=== PATIENT | female | born 2000 | race Two or more races ===

== ENCOUNTER → 2024-07-06 | Outpatient (CLI) | payer MEDICARE, SELFPAY ==
[2024-07-06 09:20] LABS: HCG Qualitative,Urine Negative
--- NOTE | 2024-07-06 09:28 | XR_ITS ---
Examination: MRI of brain without intravenous contrast. MRI brain with intravenous contrast. Date and time of exam:July 06, 2024 1036 hours INDICATIONS: Elevated prolactin levels on laboratory examination May 2024 Technique: Multiple axial and sagittal images of the brain to been obtained. Siemens high-resolution 1.52 Lisa short bore scanner utilized. Sagittal sections, T1 weighted images, TR 500, TE 14, are performed. Axial sections proton-density and T2-weighted images have been obtained. Inversion recovery axial images, TR 9260, TE 111, TR 2500. Diffusion weighted images, axial sections, TR 4800, TE 128, B value 1000. Axial sections, ADC map, TR 4800, TE 128. Axial and coronal images were also obtained post 20 cc gadolinium administered intravenously. Findings:: Enlargement of the sella turcica is not present. The optic chiasm and infundibular stalk are not remarkable. There is no localized enlargement of the medulla or talia. Fourth ventricle and cerebellar tonsils appear normal in position. No subacute area of hemorrhage density is seen. Fourth ventricle is midline. Mass in the cerebellopontine angle region is not evident. 7th and 8th nerve complexes exhibit symmetry Globes are symmetrical Orbital musculature including medial lateral rectus muscles do not exhibit abnormality Increased white matter signal is not seen Effacement of the cortical sulcal markings is not identified. Mass effect upon the ventricular system is not identified. Diffusion-weighted images demonstrate no focus of restricted diffusion Contrast images demonstrate no abnormal enhancement Impression: Negative for acute hemorrhage mass effect or midline shift No acute infarct No MR findings diagnostic for demyelinating disease No pituitary micro or macroadenoma
== END | disposition home or self-care (01) ==
PROVIDERS: Referring Provider Specialist; Visit Provider Specialist
DX: E22.1 Hyperprolactinemia (principal); Z32.00 Encounter for pregnancy test, result unknown
CPT/HCPCS: 70553; 81025; A9579

== ENCOUNTER 2024-08-11 12:11 | Emergency (ER) | payer MEDICARE, SELFPAY ==
[2024-08-11 12:13] VITALS: BMI 37.8
[2024-08-11 13:16] VITALS: BP 133/88; PULSE 113; RESP 19; TEMP 36.7; O2SAT 98
--- NOTE | 2024-08-11 13:44 | PD.EDRME ---
Rapid Medical Screening Exam RME Arrival date/time: 08/11/24 12:11 24-year-old female history of psych disorder stopped taking her medications on August 08 bizarre this and behavioral changes Here with mother for evaluation. I have greeted and performed a focused initial assessment of this patient. Initial appropriate labs ordered at this time. A comprehensive ED assessment and evaluation of the patient and analysis of all test and completion of medical decision making process will be conducted by additional ED provider. Chief Complaint: Psychiatric Symptoms Time Seen by Provider: 08/11/24 12:46 Vital signs: Vital Signs Temperature 98.1 F 08/11/24 13:16 Pulse Rate 113 H 08/11/24 13:16 Respiratory Rate 19 08/11/24 13:16 Blood Pressure 133/88 H 08/11/24 13:16 Pulse Oximetry (%) 98 08/11/24 13:16 Oxygen Delivery Method Room Air 08/11/24 13:16
--- NOTE | 2024-08-11 13:50 | EDNOTE_ITS ---
ED Psych RME/HPI General Chief Complaint: Psychiatric Symptoms Stated Complaint: INCREASED PARANOID HX OF SCHIZOPHRENIA Time Seen by Provider: 08/11/24 12:46 Arrival date/time: 08/11/24 12:11 RME / HPI RME / HPI Narrative: 24-year-old female patient with significant history of schizophrenia, was brought in by her mom for increasing paranoia after patient stopped taking her olanzapine and Prozac for 1 week. However patient took her medication again at 11 AM. Patient was noted by her mom to be having hyperactivity, bizarre behavior, putting a lot of make-up, severity moderate. On my initial evaluation patient told me that she is now back to her baseline. Denies any homicidal or suicidal ideation. Related Data Home Medications ?Medication ?Instructions ?Recorded ?Confirmed olanzapine 20 mg tablet 25 mg PO QPM 09/15/21 12/01/22 fluoxetine 20 mg capsule (Prozac) 20 mg PO QDAY 08/21/22 12/01/22 Previous Rx's ?Medication ?Instructions ?Recorded docusate sodium 100 mg capsule 100 mg PO BID #40 caps 06/27/21 (Colace) Allergies Allergy/AdvReac Type Severity Reaction Status Date / Time No Known Allergies Allergy Verified 08/11/24 12:17 Review of Systems Review of Systems Narrative Review of Systems: Review of system reviewed and within normal limits except mentioned in HPI ED Exam Narrative Physical exam: VITAL SIGNS: Reviewed. GENERAL APPEARANCE: Alert and interactive, follows commands, no acute distress, HEAD AND FACE: Non-traumatic. ENT: PERRL, pink conjunctivitis, eyelid no trauma, Mucous membrane moist. NECK: Supple, nontender, no nuchal rigidity. CHEST: No tenderness, no crepitus, no paradoxical movement, no retractions. LUNGS: Clear, well ventilated, symmetric, no rales, no wheezing, no ronchi, no stridor, good breath sounds bilaterally. HEART: Regular rate, regular rhythm, no murmur, no gallops. ABDOMEN: Soft, positive bowel sounds, nondistended, no guarding, nontender, no rebound, no masses, RECTAL: Deferred. GENITAL: Deferred. NEUROLOGICAL: Gross motor function intact sensory function intact, Appropriate for age. MUSCULOSKELETAL: low back nontender, full range of motion. EXTREMITIES: Nontender, full range of motion. SKIN: Color pink, dry, no rash, no lacerations, no abrasions, no contusions. LYMPHATICS: Deferred. Course Quality Measures none Orders Category Date Time Status Psychosocial assessment NOW Care 08/11/24 13:44 Active Consult to Psychologist Routine Cons 08/11/24 13:44 Ordered Drug Screen,Urine Stat Lab 08/11/24 14:16 Completed HCG Qualitative,Urine Stat Lab 08/11/24 14:16 Completed RED [Alcohol, Blood Medical] Stat Lab 08/11/24 13:55 Completed Vital Signs Vital signs: Vital Signs Temperature 98.1 F 08/11/24 13:16 Pulse Rate 113 H 08/11/24 13:16 Respiratory Rate 19 08/11/24 13:16 Blood Pressure 133/88 H 08/11/24 13:16 Pulse Oximetry (%) 98 08/11/24 13:16 Oxygen Delivery Method Room Air 08/11/24 13:16 Psych MDM Narrative MDM Narrative:: 24-year-old female patient with significant history of schizophrenia, was brought in by her mom for increasing paranoia after patient stopped taking her olanzapine and Prozac for 1 week. However patient took her medication again at 11 AM. Patient was noted by her mom to be having hyperactivity, bizarre behavior, putting a lot of make-up, severity moderate. On my initial evaluation patient told me that she is now back to her baseline. Denies any homicidal or suicidal ideation. Patient is medically cleared for crisis evaluation Patient will be reevaluated by crisis in the morning. Care transferred to Dr. Montgomery at 11 PM for final disposition Patient data External records reviewed:: None Clinical information provided by:: patient and family Social determinants that could affect healthcare access:: none Patient has the following chronic illnesses:: Schizophrenia How is presenting disease/condition affected by chronic disease/condition?: exacerbated by Evaluation data The following diagnostics were reviewed and interpreted by me:: lab results Lab and/or radiology exams considered but not ordered:: None Interpretation Summary: Patient's workup all came back unremarkable. Medications / Prescriptions Medications or Prescriptions considered but not ordered:: None Medication administrations:: None Consultations Consultation(s) initiated? (list below): No Diagnosis Psych Differential Diagnosis: acute psychosis, chronic schizophrenia and bipolar disorder Most likely diagnosis given after review of the tests above:: Acute paranoia, chronic schizophrenia, poor medication compliance Admission Indicated Admission indicated?: not indicated Admission Request Was there a request for admission?: No Disposition Plan Disposition Plan: other (specify) Discharge Plan Prescriptions/Referrals Prescriptions/Med Rec: No Action docusate sodium [Colace] 100 mg capsule 100 mg PO BID Qty: 40 0RF olanzapine 20 mg Tablet 25 mg PO QPM fluoxetine [Prozac] 20 mg Capsule 20 mg PO QDAY Referrals: Sally Paulson PL[employer]ER [employer]ARER [Primary Care Provider] - In 1 week Problem List Clinical Impression: Acute psychosis, Chronic schizophrenia Patient/Caregiver Discharge Instructions Print Language: Citizen Of [place]
--- NOTE | 2024-08-11 14:08 | PC.CC ---
Addendum entered by Balaji Zuñiga II 08/11/24 16:55: ASW attempted to meet with pt at bedside to complete assessment to determine if pt meets criteria for 5150 hold. Pt noted to be asleep and time of encounter and not responding to name being called. Fast Track provider Jc expressed concerns on pts initial presentation, refusing to engage in med assessment. Pt distracted by her phone, provided short blunt responses. Noted that pt was applying makeup all over her face. Provider Jc, states that pts mom expressed concerns about pt being non-compliant with her medications and concerns about pts bizarre behaviors. Pt toxicology screening negative for all substances. Pts [place] Screening low risk with pt responding no to all questions. Ot note from historical, pt placed from ED on 03/23/2019 at [facility] by [facility]. Pt again evaluated 01/28/2021 for intentional OD with plan to end her life. Pt evaluated by [facility] and cleared with SP. Collateral Information: [id number] spoke with pts mother Georgie Pickard [phone]. Pts mom reporting, pt brought into ED for concerns of pt being non-compliant with her home medications for the last 2 weeks. Pts mom reporting that since 08/08/24 pt has been exhibiting more and more bizarre behaviors. Per mom pt will shower and not wash her hair. Pt will get dressed and not put on under garments. Per pts mom pt has completely trashed her closet. Pt demonstrating manic behaviors as noted that pt paces non-stop. Per mom pt has not endorsed any SI/HI-A/VH to her. Per pts mom, pt stopped her medications over concerns that she will gain weight. Per mom pt placed on medication 3 yrs ago, with some changes in dosages since. Per pts mom, when pt complies with her medication she is calm and often times very sleepy. Pt is prescribed Olanzapine. Per mom pt is connected with PAC, pt last had an appointment on 08/04/24, but missed to the appointment. Per mom pt stating she is fearful that they are going to hurt her, referring to her psychiatrist and clinic staff. Per mom pt was placed on a cancelation list for an immediate appointment. Per mom, PAC would have seen pt this AM at 0830, but states she could not wake pt up. Per pts mom she is the one who dispenses pts medications, but states when pt takes her medications she sleeps and misses doses. Per pts mom, she would like pt to return home and is willing to accept responsibility for caring for pt. Pts mom confirmed previous hospitalization. Pt is currently followed by Dr. Velázquez with PAC. Per pts mom, pt took her medication here in ED. Case staffed with REVENUE ACCOUNTANT Arpita Fletcher, pt will remain in ED overnight for eval in AM. At this time pt does not meet criteria for 5150 hold as pt is not a threat to herself or to others. ASW met with mom and provided update. Pts mom in agreement with plan and states understanding that pt is not on a hold at this time. ED provide Abrea and ED Charge Sydnie updated on plan for re-evaluation in AM. Original Note: Pt Rowena Pickard is a 24 yr old female to ED for increased paranoia. From report pt stopped her psychiatric medications on 08/08/24 and since has been exhibiting bizarre behaviors. At this time pt is pending medical clearance for crisis evaluation.
[2024-08-11 14:10] VITALS: BP 118/80; PULSE 98; RESP 18; TEMP 36.8; O2SAT 96
[2024-08-11 14:23] LABS: Alcohol, Blood Medical < 10.0 mg/dL (0-10.0)
[2024-08-11 14:32] LABS: HCG Qualitative,Urine Negative
[2024-08-11 14:39] LABS: Amphetamine/Methamp Scrn,U Negative (Negative); Barbiturate Screen,Urine Negative (Negative); Benzodiazepines Screen,Urine Negative (Negative); Benzoylecgonine Screen, Ur Negative (Negative); Fentanyl Screen,Urine Negative (Negative); Opiate Screen,Urine Negative (Negative); THC Screen,Urine Negative (Negative)
[2024-08-11 16:00] VITALS: BP 154/88; PULSE 98; RESP 17; TEMP 36.7; O2SAT 99
[2024-08-11 18:00] VITALS: BP 133/72; PULSE 108; RESP 19; TEMP 37.1; O2SAT 96
[2024-08-11 20:34] VITALS: BP 147/95; PULSE 94; RESP 18; TEMP 37.1; O2SAT 97
[2024-08-11 22:59] VITALS: BP 127/83; PULSE 89; RESP 16; TEMP 37.1; O2SAT 98
--- NOTE | 2024-08-12 00:13 | PD.EDADDENDU ---
Emergency Room Addendum Addendum Narrative: 2300: Care assumed from Yolanda Lyons NP. Past medical, surgical, social and family history reviewed. Vitals and home medications reviewed. Results and treatment plan discussed. I will assume the care of the patient at this time and will follow the patient, pending crisis re-evaluation. Please refer to the emergency department record for history and examination from initial visit. Patient was placed in observation for treatment and monitoring of psychiatric symptoms, at 2300 08/11/2024. Symptoms consist of suicidal ideation and depression. Treatment plan includes psychiatric consult, reassessments, and possible placement into psychiatric facility. The patient had access and provided personal hygiene, shower, food, water, and daily medications. 0455: Patient is alert, awake, and talking. Patient states she stopped taking her medications on and off again for the last few weeks due to them making her feel paranoid and causing her to gain weight. She denies any SI or HI. 0600: Care signed out to Dr. Clifford (emergency physician). Past medical, surgical, social and family history reviewed. Vitals and home medications reviewed. Results and treatment plan discussed. They will assume the care of the patient at this time and will follow the patient, pending labs and crisis re-evaluation. At this time, observation has ended.
[2024-08-12 02:42] VITALS: BP 137/78; PULSE 103; RESP 18; TEMP 36.7; O2SAT 97
--- NOTE | 2024-08-12 04:57 | PC.NURSE ---
PT ALERT AND AWAKE, TALKING COMPLETE SENTENCES AND STATING THAT SHE DOESNT REMEMBER ANYTHING FROM YESTERDAY. PT DENIES ANY SUICIDAL OR HOMICIDIAL IDEATIONS. PT STATES THAT SHE DOESNT WANT TO TAKE HER MEDICATION BECAUSE IT MAKES HER GAIN WEIGHT AND SLEEPY. STATES SHE ONLY TAKES HER MEDS INTERMITTENTLY. MOTHER AT BEDSIDE, SITTER REMOVED OFF PATIENT PATIENT IS VOLUNTARY AND LOW RISK. WAITING TO BE RE-EVALUATED BY CRISIS IN AM. WILL CONTINUE WITH PLAN OF CARE.
[2024-08-12 05:09] LABS: Basophils % (Auto) 0 % (0-2.5); Eosinophils % (Auto) 0 % (0-10); Hematocrit 39.8 % (36.0-46.0); Hemoglobin 13.6 g/dL (12.0-16.0); Immature Granulocytes % (Auto) 0 % (0-0); Immature Granulocytes Auto 0.02 Thou/mm3 (0.00-0.00); Lymphocytes # (Auto) 2.2 Thou/mm3 (1.0-4.8); Lymphocytes % (Auto) 22 % (10-50); Mean Corpuscular HGB Conc 34.2 g/dl (31.0-37.0); Mean Corpuscular Hemoglobin 29.2 pg (25.0-35.0); Mean Corpuscular Volume 85 fL (80-100); Monocytes # (Auto) 0.6 Thou/mm3 (0.0-0.8); Monocytes % (Auto) 6 % (0-12); Neutrophils # (Auto) 7.1 Thou/mm3 (1.8-7.7); Neutrophils % (Auto) 72 % (37-80); Nucleated Red Blood Cell % 0 /100 WBC (0); Platelet Count 285 Thou/mm3 (140-440); RDW Standard Deviation 42.6 fL (36.4-46.3); Red Blood Count 4.66 Miln/mm3 (4.00-5.20); White Blood Count 9.9 Thou/mm3 (3.6-11.0)
[2024-08-12 05:47] LABS: Alanine Aminotransferase 52 U/L (10-49); Albumin, Serum 4.9 gm/dL (3.5-5.0); Albumin/Globulin Ratio 1.8 (1.2-2.2); Alcohol, Blood Medical < 3.0 mg/dL (0-10.0); Alkaline Phosphatase 69 U/L (46-116); Anion Gap 10 (7-16); Aspartate Amino Transferase 31 U/L (0-34); BUN/Creatinine Ratio 13 Ratio (12-20); Bilirubin,Total 0.7 mg/dL (0.3-1.2); Blood Urea Nitrogen 8 mg/dL (9-23); Calcium 9.4 mg/dL (8.3-10.6); Calcium (Corrected) 9.4 mg/dL (8.5-10.1); Carbon Dioxide 23.1 mMol/L (20.0-31.0); Chloride 104 mMol/L (98-107); Creatinine (Component) 0.6 mg/dL (0.6-1.3); Estimated Creatinine Clearance 149.6 mL/min (>60); Free T4 (Free Thyroxine) 1.83 ng/dL (0.89-1.76); Globulin 2.7 gm/dL (2.3-3.5); Glucose 88 mg/dL (74-106); Magnesium 2.3 mg/dL (1.6-2.6); Osmolality,Calculated 271 (275-295); Potassium 2.8 mMol/L (3.4-5.1); Sodium 137 mMol/L (136-145); Thyroid Stimulating Hormone 1.48 uIU/mL (0.55-4.78); Total Protein 7.6 gm/dL (5.7-8.2); eGFR > 60 See Note
[2024-08-12 06:28] VITALS: BP 130/88; PULSE 103; RESP 18; TEMP 37.3; O2SAT 96
--- NOTE | 2024-08-12 07:31 | PD.EDADDENDU ---
Emergency Room Addendum Addendum Narrative: 0600 care assumed by previous shift provider. Past medical, surgical, social and family history reviewed. Vitals and home medications reviewed. Results and treatment plan discussed. I will assume the care of the patient at this time and will follow the patient, pending final disposition. Patient is cleared by crisis management and safety plan has been prepared. She had no acute issues and did not require any behavioral interventions during my encounter. Reviewed all results, analysis, treatment plan the patient was discharged in stable condition.
--- NOTE | 2024-08-12 08:32 | PC.CC ---
Pt Rowena Pickard, is a 24-year-old female brought in to ED by Mother voluntary. Rim Technician met with pt to complete Mental Heal Evaluation. Pt presents alert but disheveled. Pt easily engaged and was able to sit up on gurney and make direct eye contact as encounter progressed. Pt is noted to be alert and oriented to person, current place and year. Pt reports hx of mental health and reports being currently enrolled in Mental Health services through [facility], next appointment scheduled for 09/22/2024. Pt reports is compliant with therapeutic services but miss last appointment due to experiencing paranoid thoughts. Pt denies previous 5150 holds. Pt placed in ED 17. Pt reports living with Mother Georgie Pickard [phone], Father, and younger sister in [place] area, [address], [place] [facility] [address]. ED Seam Feller encountered Pt for mental health evaluation. ED Seam Feller used the following interventions: empathy, unconditional positive regard, Socratic dialogue including clarifying and probing questions. Pt was receptive and was able to disclosed frustration with weight gain and sleepiness with current psych medication. Pt reported Mother brought her into ER due to experiencing paranoid thoughts after deciding to stop psych medication on 08/08/2024. ED Seam Feller used C-SSRS to support process and assessed for SI/HI, self-harming behaviors, method, access to lethal means, plan/intent. Pt was responsive to mental health evaluation and denied plan/intent for SI/HI. Pt reported no hx of non-suicidal self-injury. Pt states she does not want to and has been able to discuss safety plan with Mother regarding having Pt begin daily routine of being more physically active and eating healthier. Mother agreed to supervise Pt follow safety plan and bring Pt back to ER if paranoid thoughts and behaviors begin again. ED Seam Feller consulted with egg processing supervisor Arpita Fletcher and it was agreed to safety plan with client due to client denying SI/HI with no plan/intent. Pt was engaged and assessed as reliable in participation in safety planning and was in agreement. Pt was able to review positive coping skills of playing with dog, going on walks, playing guitar. Mother agreed to lock away all sharps and medication and actively observe Pt for the follow 74 hours. Pt and Mother agreed to attend scheduled appointment with PAC on 09/22/2024 at 8:00am. ED Seam Feller will submit paperwork to PAC regarding Pt ER visit in order to ensure follow up.
[2024-08-12 10:36] VITALS: BP 126/87; PULSE 99; RESP 17; TEMP 36.9; O2SAT 95
== END 2024-08-12 10:42 | disposition home or self-care (01) ==
PROVIDERS: Emergency Medicine; Nurse Practitioner Primary Care; Emergency Provider Emergency Medicine; PCP Nurse Practitioner Family
DX: F20.9 Schizophrenia, unspecified (principal)
CPT/HCPCS: 36415; 80053; 80307; 80320; 81025; 83735; 84439; 84443; 85025; 90839; 96127; 99284; G0480

== ENCOUNTER 2024-10-25 18:36 | Emergency (ER) | payer MEDICAID, SELFPAY ==
[2024-10-25 18:59] VITALS: BP 147/93; PULSE 111; RESP 18; TEMP 36.8; O2SAT 97
--- NOTE | 2024-10-25 19:16 | EDRME_ITS ---
Rapid Medical Screening Exam [facility] Arrival date/time: 10/25/24 18:36 24F with history of schizophrenia (meds changed 1 month ago; but patient has been complaint up until a few days ago) presents to ED with mom for AMS and not taking showers/eating. Patient is usually on 20 mg Abilify once a day. Chief Complaint: Altered Mental Status Vital signs: Vital Signs Temperature 98.2 F 10/25/24 18:59 Pulse Rate 111 H 10/25/24 18:59 Respiratory Rate 18 10/25/24 18:59 Blood Pressure 147/93 H 10/25/24 18:59 Pulse Oximetry (%) 97 10/25/24 18:59 Oxygen Delivery Method Room Air 10/25/24 18:59
[2024-10-25 20:01] LABS: Lactate (Lactic Acid) 1.5 mMol/L (0.4-2.0)
[2024-10-25 20:05] LABS: Basophils % (Auto) 0 % (0-2.5); Eosinophils % (Auto) 0 % (0-10); Hematocrit 43.4 % (36.0-46.0); Hemoglobin 14.5 g/dL (12.0-16.0); Immature Granulocytes % (Auto) 0 % (0-0); Immature Granulocytes Auto 0.03 Thou/mm3 (0.00-0.00); Lymphocytes # (Auto) 2.6 Thou/mm3 (1.0-4.8); Lymphocytes % (Auto) 24 % (10-50); Mean Corpuscular HGB Conc 33.4 g/dl (31.0-37.0); Mean Corpuscular Hemoglobin 29.7 pg (25.0-35.0); Mean Corpuscular Volume 89 fL (80-100); Monocytes # (Auto) 0.9 Thou/mm3 (0.0-0.8); Monocytes % (Auto) 8 % (0-12); Neutrophils # (Auto) 7.5 Thou/mm3 (1.8-7.7); Neutrophils % (Auto) 67 % (37-80); Nucleated Red Blood Cell % 0 /100 WBC (0); Platelet Count 316 Thou/mm3 (140-440); RDW Standard Deviation 43.6 fL (36.4-46.3); Red Blood Count 4.89 Miln/mm3 (4.00-5.20); White Blood Count 11.1 Thou/mm3 (3.6-11.0)
[2024-10-25 20:30] LABS: Alanine Aminotransferase 45 U/L (10-49); Albumin, Serum 4.6 gm/dL (3.5-5.0); Albumin/Globulin Ratio 1.7 (1.2-2.2); Alkaline Phosphatase 53 U/L (46-116); Anion Gap 15 (7-16); Aspartate Amino Transferase 18 U/L (0-34); BUN/Creatinine Ratio 12 Ratio (12-20); Bilirubin,Total 0.8 mg/dL (0.3-1.2); Blood Urea Nitrogen 7 mg/dL (9-23); Calcium 9.5 mg/dL (8.3-10.6); Calcium (Corrected) 9.5 mg/dL (8.5-10.1); Carbon Dioxide 23.3 mMol/L (20.0-31.0); Chloride 105 mMol/L (98-107); Creatinine (Component) 0.6 mg/dL (0.6-1.3); Globulin 2.7 gm/dL (2.3-3.5); Glucose 112 mg/dL (74-106); Osmolality,Calculated 283 (275-295); Potassium 2.8 mMol/L (3.4-5.1); Sodium 143 mMol/L (136-145); Total Protein 7.3 gm/dL (5.7-8.2); eGFR > 60 See Note
[2024-10-25 20:58] VITALS: BP 153/84; PULSE 110; RESP 19; TEMP 37.1; O2SAT 96
[2024-10-26 02:46] VITALS: BP 138/83; PULSE 99; RESP 16; TEMP 37; O2SAT 98
[2024-10-26 06:12] VITALS: BP 168/103; PULSE 123; RESP 17; TEMP 37.8; O2SAT 98
--- NOTE | 2024-10-26 06:31 | PD.EDRME ---
Rapid Medical Screening Exam RME Arrival date/time: 10/25/24 18:36 10/25/24 18:36 24F with history of schizophrenia (meds changed 1 month ago; but patient has been complaint up until a few days ago) presents to ED with mom for AMS and not taking showers/eating. Patient is usually on 20 mg Abilify once a day. 313 at 0 637, patient was brought back from the waiting room at this time the patient is minimally responding to sternal rub stating that she cannot breathe although she has normal breath sounds. Mother states that the patient has not been taking her Abilify for her schizophrenia over a week. Vital signs were assessed and it was noted the patient is now developed a fever of 100.1 remains tachycardic with elevated blood pressure at this time sepsis was initiated. Chief Complaint: Altered Mental Status Time Seen by Provider: 10/25/24 22:32 Vital signs: Vital Signs Temperature 98.2 F 10/25/24 18:59 Pulse Rate 111 H 10/25/24 18:59 Respiratory Rate 18 10/25/24 18:59 Blood Pressure 147/93 H 10/25/24 18:59 Pulse Oximetry (%) 97 10/25/24 18:59 Oxygen Delivery Method Room Air 10/25/24 18:59 RME Narrative: 10/25/24 18:36 24F with history of schizophrenia (meds changed 1 month ago; but patient has been complaint up until a few days ago) presents to ED with mom for AMS and not taking showers/eating. Patient is usually on 20 mg Abilify once a day.
--- NOTE | 2024-10-26 06:36 | EKG_ITS ---
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
--- NOTE | 2024-10-26 06:37 | XR_ITS ---
Examination: AP chest single view. Technique: AP portable upright chest single view. Exam date and time: October 26, 2024, 0607 hrs. Indications: Sepsis today. Findings: Normal heart size. Lungs are clear. Osseous structures are intact. Impression: No active disease
[2024-10-26 07:08] LABS: Lactate (Lactic Acid) 1.3 mMol/L (0.4-2.0)
[2024-10-26 07:09] LABS: Basophils % (Auto) 0 % (0-2.5); Eosinophils % (Auto) 0 % (0-10); Hematocrit 45.9 % (36.0-46.0); Hemoglobin 15.4 g/dL (12.0-16.0); Immature Granulocytes % (Auto) 0 % (0-0); Immature Granulocytes Auto 0.02 Thou/mm3 (0.00-0.00); Lymphocytes # (Auto) 2.2 Thou/mm3 (1.0-4.8); Lymphocytes % (Auto) 25 % (10-50); Mean Corpuscular HGB Conc 33.6 g/dl (31.0-37.0); Mean Corpuscular Hemoglobin 29.6 pg (25.0-35.0); Mean Corpuscular Volume 88 fL (80-100); Monocytes # (Auto) 0.6 Thou/mm3 (0.0-0.8); Monocytes % (Auto) 7 % (0-12); Neutrophils # (Auto) 5.9 Thou/mm3 (1.8-7.7); Neutrophils % (Auto) 67 % (37-80); Nucleated Red Blood Cell % 0 /100 WBC (0); Platelet Count 316 Thou/mm3 (140-440); RDW Standard Deviation 43.8 fL (36.4-46.3); Red Blood Count 5.21 Miln/mm3 (4.00-5.20); White Blood Count 8.8 Thou/mm3 (3.6-11.0)
[2024-10-26 07:24] LABS: Partial Thromboplastin Time 23.1 Seconds (22.0-36.0); Prothrombin Time 11.4 Seconds (9.0-12.2)
[2024-10-26 07:27] LABS: Strep A Rapid Negative (Negative)
[2024-10-26 07:28] LABS: B-Type Natriuretic Peptide < 20 pg/mL (0-100)
[2024-10-26 07:38] LABS: Alanine Aminotransferase 50 U/L (10-49); Albumin/Globulin Ratio 1.8 (1.2-2.2); Alkaline Phosphatase 57 U/L (46-116); Anion Gap 13 (7-16); Aspartate Amino Transferase 26 U/L (0-34); BUN/Creatinine Ratio 12 Ratio (12-20); Blood Urea Nitrogen 7 mg/dL (9-23); Calcium 9.9 mg/dL (8.3-10.6); Calcium (Corrected) 9.9 mg/dL (8.5-10.1); Carbon Dioxide 23.9 mMol/L (20.0-31.0); Chloride 105 mMol/L (98-107); Creatinine (Component) 0.6 mg/dL (0.6-1.3); Globulin 2.8 gm/dL (2.3-3.5); Glucose 104 mg/dL (74-106); LDH (Lactate Dehydrogenase) 257 U/L (120-246); Lipase 24 U/L (12-53); Magnesium 2.2 mg/dL (1.6-2.6); Osmolality,Calculated 281 (275-295); Phosphorous 3.9 mg/dL (2.4-5.1); Procalcitonin 0.06 ng/ml (0.0-0.49); Sodium 142 mMol/L (136-145); Total Protein 7.8 gm/dL (5.7-8.2); Troponin I < 0.002 ng/mL (0.0-0.045); eGFR > 60 See Note
[2024-10-26 09:14] VITALS: TEMP 37.8
[2024-10-26] MEDS: ACETAMINOPHEN SUPP 650 MG SUPP PR (09:14)
[2024-10-26 09:17] VITALS: BP 150/94; PULSE 107; RESP 18; TEMP 37.3; O2SAT 99
--- NOTE | 2024-10-26 09:21 | PC.NURSE ---
Pt brought in by mother. Mother states pt acting up and not normal , rolling head around, not eating/not showering/not sleeping. Pt takes abilify 20 but seems to have not taken it for the last 10 days. Also prescribed olanzapine 5mg and Hydroxyzine 25mg but not taking recently. Prozac 10mg the last 2 days. Pt rolling head but not opening eyes or speaking when aroused. Pt slightly resistant when doing in and out catheter, but stopped resisting when told what was being done and why.
[2024-10-26 09:25] LABS: Collection Type, Urine Clean Catch
[2024-10-26 09:45] LABS: Bilirubin,Urine Negative (Negative); Blood,Urine 1+ (Negative); Clarity,Urine Clear (Clear/Hazy); Color,Urine Yellow (Lt Yel-Yel); Glucose, Urine Negative (Negative); Ketones,Urine 1+ (Negative); Leukocyte Esterase,Urine Negative (Negative); Nitrite,Urine Negative (Negative); PH,Urine 6.5 (5.0-7.0); Protein,Urine 1+ (Neg - Trace); RBC,Urine 13 /hpf (0-3); Specific Gravity,Urine 1.034 (1.001-1.035); Squamous Epithelial Cell,Urine 2 /hpf (0-5); Urobilinogen,Urine Negative mg/dL (0.0-1.0); WBC,Urine 4 /hpf (0-5)
--- NOTE | 2024-10-26 09:48 | PC.NURSE ---
Pt opened her eyes and looked at mom, does not verbally respond when asked questions although mom says that she can/does talk at home. I asked the patient several questions, with no response until I asked why don't you take you medications?... is it because you don't like the way they make you feel? and pt nodded her head yes. When pt's phone rang, she sprung up and pointed to it for me to hand it to her, but did not answer verbally.
--- NOTE | 2024-10-26 09:52 | PC.NURSE ---
Mother of pt has been informed by me that pt is currently NPO
[2024-10-26 10:14] VITALS: TEMP 37.1
--- NOTE | 2024-10-26 10:26 | PD.EDPSYCH ---
ED Psych RME/HPI General Chief Complaint: Altered Mental Status Stated Complaint: SCHIZOPHRENIC, HASN'T BEEN TAKING MED X 5 DAYS Time Seen by Provider: 10/25/24 22:32 Arrival date/time: 10/25/24 18:36 RME / HPI RME / HPI Narrative: 10/25/24 18:36 24F with history of schizophrenia (meds changed 1 month ago; but patient has been complaint up until a few days ago) presents to ED with mom for AMS and not taking showers/eating. Patient is usually on 20 mg Abilify once a day. DR. WALTON MAIN ED EVALUATION: 24 year old female with past medical history significant for schizophrenia presents to the Emergency Department with complaint of not feeling well . Per mother, she is not taking showers or eating well. Patient had her medications changed a month ago and now taking Abilify 20 mg daily, but the patient discontinued taking them because they made her feel sick . Patient denies any pain or specific symptoms at this time. Related Data Home Medications ?Medication ?Instructions ?Recorded ?Confirmed olanzapine 20 mg tablet 25 mg PO QPM 09/15/21 12/01/22 fluoxetine 20 mg capsule (Prozac) 20 mg PO QDAY 08/21/22 12/01/22 Previous Rx's ?Medication ?Instructions ?Recorded docusate sodium 100 mg capsule 100 mg PO BID #40 caps 06/27/21 (Colace) Allergies Allergy/AdvReac Type Severity Reaction Status Date / Time No Known Allergies Allergy Verified 10/26/24 06:34 Review of Systems Review of Systems Systems Reviewed: All systems reviewed, normal except as documented Narrative Review of Systems: GEN: No fever, no chills, no weight loss EYES: No discharge, no visual changes, no pain HEENT: No ear pain, no congestion, no sore throat PULM: No shortness of breath, no cough, no congestion CV: No chest pain, no dyspnea on exertion, no palpitations GI: No nausea, no vomiting, no diarrhea, no pain, no constipation : No frequency, no urgency and no dysuria MUSC/SKEL: No joint pain, no back pain SKIN: No rash PSYCH: No hallucinations, no depression HEME/LYMPH: No easy bleeding or bruising tendencies NEURO: No weakness, no headache Past Medical History Past Medical History RESPIRATORY: Positive Asthma (SEASONAL HAS INHALER) and Bronchitis GASTROINTESTINAL: Positive Gastrointestinal Disorders, Gastroesophageal Reflux Disease and Obesity PSYCHO/SOCIAL: Positive Depression, Anxiety and Behavior Problems (SUICIDE ATTEMPT-2019 NO PROBLEMS NOW) OTHER HISTORY: Positive Hospitalization ([facility] 2020) Family History FAMILY HISTORY: Positive Family Surgery (MOTHER) Surgical History SURGICAL: Positive Abdominal Surgery (ERCP X1) Social History SMOKING STATUS: Never smoker SUBSTANCE USE: does not use ALCOHOL: Never ED Exam Narrative Physical exam: GENERAL APPEARANCE: alert and oriented x 4, well-developed, well-nourished, no acute distress VITALS: All vitals were reviewed and the pulse ox is 95% on room air, which is normal according to my interpretation. HEENT: Normocephalic, atraumatic; pupils equal, round, reactive to light; EOMI; mucous membranes pink, moist; oropharynx clear NECK: Supple LUNGS: CTABL; no wheezes, no rales, no rhonchi HEART: Regular rate, regular rhythm; normal S1, S2; no murmurs ABDOMEN: non distended; normal BS; soft, no tenderness, no guarding, no rebound; no masses, no organomegaly, no hernia BACK: no CVA tenderness EXTREMITIES: atraumatic; no edema NEUROLOGIC: awake; alert and oriented x4; cranial nerves II-XII grossly intact; no focal sensory or motor deficits PSYCHIATRIC: appropriate mood and affect SKIN: warm, dry, normal color; no rashes Course Quality Measures none Orders Category Date Time Status Bedside COVID-19 Antigen Test NOW Care 10/26/24 06:35 Completed Bedside Influenza A&B Antigen Test NOW Care 10/26/24 06:36 Completed Data Base Administrator STAT Care 10/26/24 06:36 Completed Continuous Pulse Oximetry STAT Care 10/26/24 06:36 Completed EKG (ED ONLY) *Do not use* NOW Care 10/26/24 06:36 Completed In and Out Catheter X1PRN Care 10/26/24 06:36 Completed Insert IV NOW Care 10/26/24 06:36 Completed NPO STAT Care 10/26/24 06:36 Completed Strict Intake and Output Routine Care 10/26/24 06:36 Ordered EKG (ED Only) Stat Exams 10/26/24 06:36 Ordered XR chest 1V Stat Exams 10/26/24 06:37 Completed Alcohol, Blood Medical Stat Lab 10/26/24 06:50 Completed B-Type Natriuretic Peptide Stat Lab 10/26/24 06:50 Completed Blood Culture (Lab) Stat Lab 10/26/24 06:50 Received CBC Stat Lab 10/25/24 19:25 Completed CBC Stat Lab 10/26/24 06:50 Completed CMP [Comprehensive Metabolic Panel] Stat Lab 10/25/24 19:25 Completed Comprehensive Metabolic Panel Stat Lab 10/26/24 06:50 Completed LDH (Lactate Dehydrogenase) Stat Lab 10/26/24 06:50 Completed Lactate (Lactic Acid) Stat Lab 10/25/24 19:25 Completed Lactate (Lactic Acid) Stat Lab 10/26/24 06:50 Completed Lipase Stat Lab 10/26/24 06:50 Completed Magnesium Stat Lab 10/26/24 06:50 Completed Partial Thromboplastin Time Stat Lab 10/26/24 06:50 Completed Phosphorous Stat Lab 10/26/24 06:50 Completed Procalcitonin Stat Lab 10/26/24 06:50 Completed Prothrombin Time with INR Stat Lab 10/26/24 06:50 Completed Strep A Rapid Stat Lab 10/26/24 06:39 Completed Troponin I Stat Lab 10/26/24 06:50 Completed Urinalysis Stat Lab 10/26/24 09:21 Completed Urine Culture Stat Lab 10/26/24 09:21 Received Acetaminophen Supp [Tylenol Supp] Med 10/26/24 07:07 Discontinued 650 mg VA X1 ONE KCL 10% Liq UDC 15 ML Med 10/26/24 09:47 Discontinued 40 meq PO X1 ONE Oxygen Delivery NOW RT 10/26/24 06:36 Completed Vital Signs Vital signs: Vital Signs Temperature 98.2 F 10/25/24 18:59 Pulse Rate 111 H 10/25/24 18:59 Respiratory Rate 18 10/25/24 18:59 Blood Pressure 147/93 H 10/25/24 18:59 Pulse Oximetry (%) 97 10/25/24 18:59 Oxygen Delivery Method Room Air 10/25/24 18:59 Procedures -ED EKG Interpretation #1: Date of EK10/26/24 Time of EK:49 Rate: 111 Interpretation: Interpreted by me Additional EKG comment: sinus tachycardia, rate 111, partial right bundle branch block Psych MDM Narrative MDM Narrative:: I, Kay Mckee am scribing for and in the presence of Dr. Walton. Patient data External records reviewed:: [facility] previous records (Reviewed last ED visit dated 08/12/24, discharged with the following: Acute psychosis) Clinical information provided by:: patient and parent (mother) Social determinants that could affect healthcare access:: none Patient has the following chronic illnesses:: Schizophrenia; patient had her medications changed a month ago and now taking Abilify 20 mg daily, but the patient discontinued taking them because they made her feel sick . How is presenting disease/condition affected by chronic disease/condition?: caused by Evaluation data The following diagnostics were reviewed and interpreted by me:: lab results, radiology exam(s) and EKG tracing(s) (EKG#1: EKG at 0649 hours. Interpreted by me: sinus tachycardia, rate 111, partial right bundle branch block) Lab and/or radiology exams considered but not ordered:: none Interpretation Summary: Procedure(s): XR chest 1V Accession Number(s): [id number] cc: Casey Watson EMERGENCY MANAGEMENT PROGRAM SPECIALIST; Addison Cruz MD; Sally Paulson NP~ Examination: AP chest single view. Technique: AP portable upright chest single view. Exam date and time: October 26, 2024, 0607 hrs. Indications: Sepsis today. Findings: Normal heart size. Lungs are clear. Osseous structures are intact. Impression: No active disease Dictated By: Addison Cruz MD Medications / Prescriptions Medications or Prescriptions considered but not ordered:: none Medication administrations:: Medication Administration History Discontinued Medications Acetaminophen (Acetaminophen Supp 650 Mg Supp) 650 mg VA X1 ONE Stop: 10/26/24 07:08 Last Admin: 10/26/24 09:14 Dose: 650 mg Documented By: EDGAR Comments: Package would not scan Potassium Chloride (Potassium Chloride 10% 20 Meq/15 Ml Udc) 40 meq PO X1 ONE Stop: 10/26/24 09:48 Last Admin: 10/26/24 10:28 Dose: 40 meq Documented By: EDGAR see above Consultations Consultation(s) initiated? (list below): No Diagnosis Psych Differential Diagnosis: acute psychosis, chronic schizophrenia, depression and acute anxiety Most likely diagnosis given after review of the tests above:: Schizophrenia Admission Indicated Admission indicated?: not indicated Admission Request Was there a request for admission?: No Disposition Plan Disposition Plan: Discharge Discharge Attestation Discharge Attestation: The patient and all family members were given an opportunity to ask questions and understood the discharge instructions. Discharge instructions specifically effects, indications for sooner follow up or return to the emergency department, and the expected course of current diagnosis. Patient condition: Stable Discharge Plan Plan Patient Disposition: HOME (Self Care) Patient condition on transfer: Stable Prescriptions/Referrals Prescriptions/Med Rec: No Action docusate sodium [Colace] 100 mg capsule 100 mg PO BID Qty: 40 0RF olanzapine 20 mg Tablet 25 mg PO QPM fluoxetine [Prozac] 20 mg Capsule 20 mg PO QDAY Referrals: Sally Paulson NP [Primary Care Provider] - In 1 week Problem List Clinical Impression: Schizophrenia Patient/Caregiver Discharge Instructions Education Materials: ED Schizophrenia, General Print Language: Arabic Stand Alone Forms: Pam Award Info., Patient Portal Info Letter
[2024-10-26] MEDS: POTASSIUM CHLORIDE 10% 20 MEQ/15 ML UDC 40 MEQ PO (10:28)
[2024-10-26 10:45] LABS: Alcohol, Blood Medical < 3.0 mg/dL (0-10.0)
[2024-10-26 10:58] VITALS: BP 130/91; PULSE 96; RESP 27; TEMP 37.2; O2SAT 95
--- NOTE | 2024-10-26 11:07 | PC.CC ---
Patient is a 24 year-old female BIB-mother for Alter Mental Status. Charis CURTIS was consulted regarding mental health evaluation for patient as it was reported that patient stopped taking her medications for Schizophrenia. Charis CURTIS made [id number] contact with patient. ASW introduced self, role, and reason for visit.?Patient appeared alert and oriented to self, location, and situation.?At bedside was patient?s mother, Georgie Pickard who patient provided consent to remain in the room during assessment.? Patient was pleasant and engaged in initial assessment. Patient mood euthymic throughout assessment; her behavior appeared appropriate. Thought process was linear and organized. Patient reports she stopped taking her psychotropic medications Ambilify 20mg, Fluoxetine 10mg, Hydroxyzine 25mg, and Zyprexa 5mg approximately two weeks ago because she did not like how it made her feel. Patient was diagnosed with Schizophrenia 5 years ago. Patient is connected to outpatient mental health services at [facility] ([facility] Patient is followed by a Computer Project Manager and Psychiatrist, Dr. Goldberg. Patient denies suicidal and homicidal ideations, visual and auditory hallucinations. Patient reports she has suicide attempts in the past but does not recall the last time and has not thoughts currently or intentions. Patient stated, ?I just don?t like how the medication change made me feel.? ASW informed the patient that it is important to tell her psychiatrist at her next appointment of all side effects she has been having with the new medication. Charis CURTIS made contact with the [facility] to verify when patient?s next appointment is with the psychiatrist. Staff reported the next appointment is November 23, 2024. ASW requested an urgent appointment with the psychiatrist. Radha Hernadez, Staff reports she will request an urgent appointment with the doctor?s energy scheduler for tomorrow and patient would be called to be informed of appointment time for tomorrow. Patient and mother are willing to engage in safety plan. Upon clinical consultation with Arpita MARTINEZ patient does not meet criteria for 5150-hold. Safety plan with patient and mother will be established. Safety plan is for mother to provide extra supervision for the next 72 hours. Patient to have follow up appointment with the psychiatrist tomorrow and attend her appointment with Computer Project Manager October 31, 2024 at 12:30pm. Mother to keep all medications locked and sharps. Mother reports there are no firearms in the home. ASW provided community resource guide and Crisis Number. Charis CURTIS provided the above information for discharge plan to Dr. Walton, cephalometric analyst Kathy and bedside CAMPBELL Garcia.
== END 2024-10-26 11:16 | disposition home or self-care (01) ==
PROVIDERS: Physician Assistant; Registered Nurse General Practice; Emergency Provider Emergency Medicine; PCP Nurse Practitioner Family
DX: F20.9 Schizophrenia, unspecified (principal); R00.0 Tachycardia, unspecified
CPT/HCPCS: 36415; 71045; 80053; 80307; 80320; 81001; 83605; 83615; 83690; 83735; 83880; 84100; 84145; 84484; 85025; 85610; 85730; 87040; 87086; 87400; 87651; 87811; 90839; 93005; 99284; A9270; G0480

== ENCOUNTER 2024-10-27 22:50 | Emergency (ER) | payer MEDICAID, SELFPAY ==
[2024-10-27 22:57] VITALS: PULSE 78; O2SAT 98
[2024-10-27 23:02] VITALS: BP 143/91; PULSE 116; RESP 18; TEMP 37.1; O2SAT 96
--- NOTE | 2024-10-27 23:05 | PD.EDRME ---
Rapid Medical Screening Exam RME Arrival date/time: 10/27/24 22:50 Chief Complaint: Psychiatric Symptoms Time Seen by Provider: 10/27/24 23:04 Vital signs: Vital Signs Temperature 98.7 F 10/27/24 23:02 Pulse Rate 116 H 10/27/24 23:02 Respiratory Rate 18 10/27/24 23:02 Blood Pressure 143/91 H 10/27/24 23:02 Pulse Oximetry (%) 96 10/27/24 23:02 Oxygen Delivery Method Room Air 10/27/24 23:02 RME Narrative: 24yo female with a history of schizophrenia BIBA presents to the ED for multiple presentations of AMS. Per EMS, patient has been refusing to eat and talk. It is questionable if she has been compliant with her medications.
[2024-10-27 23:15] VITALS: BP 140/105; PULSE 110; RESP 27
[2024-10-27 23:30] LABS: Basophils % (Auto) 0 % (0-2.5); Eosinophils % (Auto) 0 % (0-10); Hematocrit 42.5 % (36.0-46.0); Hemoglobin 14.2 g/dL (12.0-16.0); Immature Granulocytes % (Auto) 0 % (0-0); Immature Granulocytes Auto 0.02 Thou/mm3 (0.00-0.00); Lymphocytes # (Auto) 2.2 Thou/mm3 (1.0-4.8); Lymphocytes % (Auto) 30 % (10-50); Mean Corpuscular HGB Conc 33.4 g/dl (31.0-37.0); Mean Corpuscular Hemoglobin 29.3 pg (25.0-35.0); Mean Corpuscular Volume 88 fL (80-100); Monocytes # (Auto) 0.6 Thou/mm3 (0.0-0.8); Monocytes % (Auto) 8 % (0-12); Neutrophils # (Auto) 4.7 Thou/mm3 (1.8-7.7); Neutrophils % (Auto) 62 % (37-80); Nucleated Red Blood Cell % 0 /100 WBC (0); Platelet Count 255 Thou/mm3 (140-440); RDW Standard Deviation 43.8 fL (36.4-46.3); Red Blood Count 4.84 Miln/mm3 (4.00-5.20); White Blood Count 7.6 Thou/mm3 (3.6-11.0)
[2024-10-27 23:53] VITALS: BMI 36.2
[2024-10-27 23:56] VITALS: PULSE 78; RESP 18; O2SAT 92
[2024-10-27 23:56] LABS: Alanine Aminotransferase 47 U/L (10-49); Albumin, Serum 4.5 gm/dL (3.5-5.0); Albumin/Globulin Ratio 1.8 (1.2-2.2); Alkaline Phosphatase 50 U/L (46-116); Anion Gap 13 (7-16); Aspartate Amino Transferase 27 U/L (0-34); BUN/Creatinine Ratio 10 Ratio (12-20); Bilirubin,Total 1.1 mg/dL (0.3-1.2); Blood Urea Nitrogen 7 mg/dL (9-23); Calcium 9.1 mg/dL (8.3-10.6); Calcium (Corrected) 9.1 mg/dL (8.5-10.1); Carbon Dioxide 25.4 mMol/L (20.0-31.0); Chloride 105 mMol/L (98-107); Creatinine (Component) 0.7 mg/dL (0.6-1.3); Estimated Creatinine Clearance 130.2 mL/min (>60); Globulin 2.5 gm/dL (2.3-3.5); Glucose 98 mg/dL (74-106); Osmolality,Calculated 282 (275-295); Sodium 143 mMol/L (136-145); eGFR > 60 See Note
[2024-10-28] VITALS: BP 158/105; PULSE 120; RESP 28; O2SAT 99
[2024-10-28] MEDS: DiphenhydrAMINE INJ 50 MG/ML VIAL IV (00:05)
[2024-10-28] MEDS: SODIUM CHLORIDE 0.9% 1000 ML 1,000 ML 999 ML IV (00:07)
[2024-10-28 00:24] LABS: HCG,Qualitative Serum Negative
--- NOTE | 2024-10-28 00:25 | PD.EDPSYCH ---
ED Psych RME/HPI General Chief Complaint: Psychiatric Symptoms Stated Complaint: CATATONIC STATE, MENTAL EVAL Time Seen by Provider: 10/27/24 23:04 Arrival date/time: 10/27/24 22:50 Limitations: no limitations RME / HPI RME / HPI Narrative: 24yo female with a history of schizophrenia BIBRochelle presents to the ED for multiple presentations of AMS. Per EMS, patient has been refusing to eat and talk. It is questionable if she has been compliant with her medications. Dr. Tello's Main ED Evaluation: 24yo female with a history of schizophrenia BIBA from home presents to the ED for a chief complaint of AMS. Mom states the patient has been refusing to get up, shower, eat, or talk. She states the patient has not been taking her medications, including olanzapine, for the last 2 weeks due to experiencing side effects. Mom states the patient was started on rispiradone today, but has not taken it yet due to being concerned about a dystonic reaction occurring. Mom states the patient has a follow-up appointment with psychiatry on Wednesday. Related Data Home Medications ?Medication ?Instructions ?Recorded ?Confirmed olanzapine 20 mg tablet 25 mg PO QPM 09/15/21 12/01/22 fluoxetine 20 mg capsule (Prozac) 20 mg PO QDAY 08/21/22 12/01/22 Previous Rx's ?Medication ?Instructions ?Recorded docusate sodium 100 mg capsule 100 mg PO BID #40 caps 06/27/21 (Colace) Allergies Allergy/AdvReac Type Severity Reaction Status Date / Time No Known Allergies Allergy Verified 10/26/24 06:34 Review of Systems Review of Systems Systems Reviewed: All systems reviewed, normal except as documented ED Exam General Limitations: Present no limitations General appearance: Present alert, in no apparent distress and other (sitting up, playing on her phone; does not have any contractions of her extremities, face or neck; does look at me) Head Head exam: Present atraumatic Eye Eye exam: Present normal appearance, PERRL and EOMI ENT ENT exam: Present normal exam, normal oropharynx and mucous membranes moist Neck Neck exam: Present normal inspection, full ROM and trachea midline Chest Chest inspection: Present normal inspection and symmetric chest wall rise Respiratory Respiratory exam: Present normal lung sounds bilaterally Cardiovascular Cardiovascular exam: Present normal rhythm, tachycardia and normal heart sounds Abdominal Exam Abdominal exam: Present soft and normal bowel sounds Extremities Exam Extremities exam: Present normal inspection and full ROM Back Exam Back exam: Present normal inspection and full ROM Neurological Exam Neurological exam: Present alert and CN II-XII intact Psychiatric Psychiatric exam: Present normal affect and normal mood Skin Skin exam: Present warm, dry, intact and normal color Course Quality Measures none Orders Category Date Time Status IV [Insert IV] STAT Care 10/27/24 23:08 Completed CBC Stat Lab 10/27/24 23:16 Completed CMP [Comprehensive Metabolic Panel] Stat Lab 10/27/24 23:16 Completed HCG,Qualitative Serum Stat Lab 10/27/24 23:16 Completed DiphenhydrAMINE INJ [Benadryl Inj] Med 10/27/24 23:33 Discontinued 50 mg IV X1 ONE POTASSIUM CHL 10 mEq IVPB [Kcl Ivpb] Med 10/28/24 00:40 Discontinued 10 meq in 100 ml IV X1 Sodium Chloride 0.9% 1000 ml [Ns] 1,000 ml Med 10/27/24 23:07 Discontinued IV 999 mls/hr Vital Signs Vital signs: Vital Signs Temperature 98.7 F 10/27/24 23:02 Pulse Rate 116 H 10/27/24 23:02 Respiratory Rate 18 10/27/24 23:02 Blood Pressure 143/91 H 10/27/24 23:02 Pulse Oximetry (%) 96 10/27/24 23:02 Oxygen Delivery Method Room Air 10/27/24 23:02 Psych MDM Narrative MDM Narrative:: It is likely best that the patient does not start another antipsychotic and that the patient follows up with psychiatry on Wednesday as scheduled. I informed the patient's mom that the patient's potassium is low at 3.0. Mom requests the patient to receive Potassium IV. Patient data External records reviewed:: [facility] previous records (Per chart review, patient was seen here yesterday for the same complaint.) Clinical information provided by:: parent Social determinants that could affect healthcare access:: mental health Patient has the following chronic illnesses:: schizophrenia How is presenting disease/condition affected by chronic disease/condition?: caused by Evaluation data The following diagnostics were reviewed and interpreted by me:: lab results Lab and/or radiology exams considered but not ordered:: none Interpretation Summary: CBC is normal, Potassium is low at 3.0, HCG is negative, according to my interpretation. Medications / Prescriptions Medications or Prescriptions considered but not ordered:: none Medication administrations:: Medication Administration History Discontinued Medications Diphenhydramine HCl (Diphenhydramine Inj 50 Mg/Ml Vial) 50 mg IV X1 ONE Stop: 10/27/24 23:34 Last Admin: 10/28/24 00:05 Dose: 50 mg Documented By: MACEY Sodium Chloride (Ns) 1,000 mls @ 999 mls/hr IV .Q1H1M ONE Stop: 10/28/24 00:07 Last Infusion: 10/28/24 01:30 Dose: Infused Documented By: Admin: 10/28/24 00:07 Dose: 999 mls/hr Documented By: MACEY Potassium Chloride (Kcl Ivpb) 10 meq in 100 mls @ 100 mls/hr IV X1 ONE Stop: 10/28/24 01:39 Last Infusion: 10/28/24 03:50 Dose: Infused Documented By: Admin: 10/28/24 02:27 Dose: 100 mls/hr Documented By: MACEY see above Consultations Consultation(s) initiated? (list below): No Diagnosis Psych Differential Diagnosis: other (dystonic reaction, dehydration, electrolyte abnormality, drug use) Most likely diagnosis given after review of the tests above:: see clinical impression below Admission Indicated Admission indicated?: not indicated Admission Request Was there a request for admission?: No Disposition Plan Disposition Plan: Discharge Discharge Attestation Discharge Attestation: The patient and all family members were given an opportunity to ask questions and understood the discharge instructions. Discharge instructions specifically effects, indications for sooner follow up or return to the emergency department, and the expected course of current diagnosis. Patient condition: Stable Discharge Plan Plan Patient Disposition: HOME (Self Care) Patient condition on transfer: Stable Prescriptions/Referrals Prescriptions/Med Rec: No Action docusate sodium [Colace] 100 mg capsule 100 mg PO BID Qty: 40 0RF olanzapine 20 mg Tablet 25 mg PO QPM fluoxetine [Prozac] 20 mg Capsule 20 mg PO QDAY Referrals: Sally Paulson NP [Primary Care Provider] - 10/30/24 Problem List Clinical Impression: Dystonic drug reaction, Acute hypokalemia Patient/Caregiver Discharge Instructions Education Materials: ED Medicine Reaction, Dystonic Additional Instructions: Please call your psychiatrist tomorrow to see if your daughter needs to start the risperidone, since you are having reservations about starting this drug secondary to her side effects to antipsychotics. You can take [id number] Benadryl 25 mg twice a day if needed for the next 2 days for similar symptoms from today. Return to emergency department worsening symptoms, or any other concerns. Your potassium was slightly decreased today. You may have to eat a banana once a week to keep your potassium normal. Follow-up with your primary care in the next 3 to 5 days to see if they would like to repeat your lab values. Print Language: Australian Stand Alone Forms: Pam Award Info., Patient Portal Info Letter
[2024-10-28 01:00] VITALS: BP 148/103; PULSE 109; RESP 29; O2SAT 99
[2024-10-28 02:00] VITALS: BP 144/104; PULSE 101; RESP 26; O2SAT 98
[2024-10-28] MEDS: POTASSIUM CHL 10 mEq IVPB 10 MEQ/100 ML BAG 100 MEQ IV (02:27)
--- NOTE | 2024-10-28 02:29 | PC.NURSE ---
about 15 min after receiving benadryl, her sx were gone. pt sitting in rm playing on celll phone. appears in no distress. Pts mother is at bedside.
[2024-10-28 03:00] VITALS: BP 138/97; PULSE 101; RESP 26; O2SAT 98
[2024-10-28 04:00] VITALS: BP 110/89; PULSE 100; RESP 29; O2SAT 98
[2024-10-28 04:22] VITALS: TEMP 36.8
== END 2024-10-28 04:24 | disposition home or self-care (01) ==
PROVIDERS: Emergency Provider Emergency Medicine; PCP Nurse Practitioner Family
DX: G24.09 Other drug induced dystonia (principal); E87.6 Hypokalemia; T43.595A Adverse effect of other antipsychotics and neuroleptics, initial encounter
CPT/HCPCS: 36415; 80053; 80307; 81001; 84703; 85025; 96361; 96365; 99284; J1200; J3480; J7030

== ENCOUNTER 2024-10-30 15:55 | Emergency (ER) | payer MEDICAID, SELFPAY ==
[2024-10-30 16:01] VITALS: BP 125/89; PULSE 117; RESP 18; TEMP 36.8; O2SAT 100
--- NOTE | 2024-10-30 16:23 | PD.EDRME ---
Rapid Medical Screening Exam RME Arrival date/time: 10/30/24 15:55 Time Seen by Provider: 10/30/24 16:21 Vital signs: Vital Signs Temperature 98.2 F 10/30/24 16:01 Pulse Rate 117 H 10/30/24 16:01 Respiratory Rate 18 10/30/24 16:01 Blood Pressure 125/89 H 10/30/24 16:01 Pulse Oximetry (%) 100 10/30/24 16:01 Oxygen Delivery Method Nasal Cannula 10/30/24 16:01 Oxygen Flow Rate 4 10/30/24 16:01 Vital signs reviewed by provider: Yes RME Narrative: 24-year-old female with history of schizophrenia and periods of catatonia coming into the emergency department by EMS with possible recurrent reaction to her Risperidone which she started 3 days ago. Patient was seen in the last 3 to 4 days for similar response treated with Benadryl. I have greeted and performed a focused initial assessment of this patient. A comprehensive ED assessment and evaluation of the patient, analysis of all test results, and completion of the medical decision making process will be conducted by additional ED providers.
[2024-10-30 16:42] VITALS: PULSE 91; RESP 16; O2SAT 99
[2024-10-30 16:47] VITALS: BMI 28.3
[2024-10-30] MEDS: DiphenhydrAMINE INJ 50 MG/ML VIAL 25 MG IVP (17:14)
--- NOTE | 2024-10-30 17:25 | PD.EDSYNC ---
ED Syncope RME/HPI General Chief Complaint: Syncope / Near Syncope Stated Complaint: SYNCOPE Time Seen by Provider: 10/30/24 16:21 Arrival date/time: 10/30/24 15:55 24 year old female with past medical history of schizophrenia and periods of catatonia present to emergency room by EMS with possible recurrent reaction of risperidone which she started 3 days ago. Pt seen at [facility] multi times, pt had an appointment with her psychiarist today. Pt placed on aripiprazole 20mg and olanzapine 5mg in the past with increase side effects which cause pcp to change to risperidone. SEVERITY: Symptoms are described as being severe with limitations on activities of daily living CONTEXT: The patient is unable to identify any inciting events. DURATION/TIMING: The symptoms started approximately intermittent 3 days ASSOCIATED SYMPTOMS: The patient is unable to identify any other associated symptoms. MODIFYING FACTORS: The patient is unable to identify any alleviating or aggravating symptoms. PERTINENT ROS: no fevers, no cough, no pleuritic pain, no ripping or tearing sensations, denies any lower extremity edema and no unilateral swelling, no chest pain/shortness of breath no nausea,vomiting, diarrhea, no dizziness/headache no rash no loc/syncope episode Dr. Goldberg REVIEW OF SYSTEMS: See History of Present Illness - with the exception of those mentioned in the history of present illness, all other systems reviewed and reported as negative GENERAL: In general the patient is awake, interactive, in an emergency department gurney. HEAD/EYES/EARS/NOSE/THROAT: normo-cephalic, atraumatic, mucus membranes are moist, anicteric, palpebral conjunctiva is pink, trachea is midline. CARDIOVASCULAR: regular rate and regular rhythm, no murmurs, heart sounds are not distant, strong pulses in all four extremities that are equal and symmetric bilateral upper and lower extremities, normal capillary refill. CHEST/PULMONARY: normal chest rise and fall, good air movement, clear to auscultation bilaterally, normal inspiratory to expiratory ratios without evidence of respiratory distress. NECK: No midline/Paraspinal tenderness, no step off ROM/Strenght intact No Kernig and bruzinski sign. No trauma ABDOMEN: soft, not tender, no masses appreciated BACK: normal range of motion without pain. NEUROLOGICAL: cranio-facial features are symmetric, moves all four extremities equally without obvious limitations or weakness. EXTREMITY: no tenderness to palpation over the long bones or large joints of the bilateral upper and lower extremities, no joint swelling, no joint erythema, no signs of trauma, no unilateral leg swelling and no peripheral edema. SKIN: warm, dry, well-perfused, no jaundice, no rash, no telangiectasias or petechia. PSYCH: move with touch but not speaking RME / HPI RME / HPI narrative: 24-year-old female with history of schizophrenia and periods of catatonia coming into the emergency department by EMS with possible recurrent reaction to her Risperidone which she started 3 days ago. Patient was seen in the last 3 to 4 days for similar response treated with Benadryl. I have greeted and performed a focused initial assessment of this patient. A comprehensive ED assessment and evaluation of the patient, analysis of all test results, and completion of the medical decision making process will be conducted by additional ED providers. Related Data Home Medications ?Medication ?Instructions ?Recorded ?Confirmed olanzapine 20 mg tablet 25 mg PO QPM 09/15/21 12/01/22 fluoxetine 20 mg capsule (Prozac) 20 mg PO QDAY 08/21/22 12/01/22 Previous Rx's ?Medication ?Instructions ?Recorded docusate sodium 100 mg capsule 100 mg PO BID #40 caps 06/27/21 (Colace) lorazepam 0.5 mg tablet (Ativan) 0.5 mg PO BID PRN anxiety #14 tabs 10/30/24 Allergies Allergy/AdvReac Type Severity Reaction Status Date / Time No Known Allergies Allergy Verified 10/26/24 06:34 Course Course Course Narrative: basic labs, and benadryl 25mg Quality Measures none Orders Category Date Time Status CBC Stat Lab 10/30/24 17:24 Completed CMP [Comprehensive Metabolic Panel] Stat Lab 10/30/24 17:24 Completed Drug Screen,Urine Stat Lab 10/30/24 16:53 Ordered HCG Qualitative,Urine Stat Lab 10/30/24 16:53 Ordered DiphenhydrAMINE INJ [Benadryl Inj] Med 10/30/24 16:52 Discontinued 25 mg IVP X1 ONE LORazepam [Ativan] Med 10/30/24 19:17 Discontinued 0.5 mg PO X1 ONE Sodium Chloride 0.9% 1000 ml [Ns] 1,000 ml Med 10/30/24 17:28 Discontinued IV 999 mls/hr Reevaluation(s) Reevaluation #1: attempt to call Dr. Goldberg no answer and uable to reach. most likely will keep/observe overnight. Reevaluation #2: mother is comfortable to start on ativan medication, has appointment with psych on wednesday. did not make to appointment on wednesday. will try to call pcp/psych tomorrow to adjust med's. pt is awake currently. Vital Signs Vital signs: Vital Signs Temperature 98.2 F 10/30/24 16:01 Pulse Rate 117 H 10/30/24 16:01 Respiratory Rate 18 10/30/24 16:01 Blood Pressure 125/89 H 10/30/24 16:01 Pulse Oximetry (%) 100 10/30/24 16:01 Oxygen Delivery Method Nasal Cannula 10/30/24 16:01 Oxygen Flow Rate 4 10/30/24 16:01 Syncope Patient data External records reviewed:: [facility] previous records Clinical information provided by:: parent Social determinants that could affect healthcare access:: mental health Patient has the following chronic illnesses:: as stated in chart How is presenting disease/condition affected by chronic disease/condition?: exacerbated by Evaluation data The following diagnostics were reviewed and interpreted by me:: lab results Lab and/or radiology exams considered but not ordered:: n/a Interpretation Summary: cbcwnl cmp wnl Medications / Prescriptions Medications or Prescriptions considered but not ordered:: n/a Medication administrations:: Medication Administration History Discontinued Medications Diphenhydramine HCl (Diphenhydramine Inj 50 Mg/Ml Vial) 25 mg IVP X1 ONE Stop: 10/30/24 16:53 Last Admin: 10/30/24 17:14 Dose: 25 mg Documented By: LILLIANA Sodium Chloride (Ns) 1,000 mls @ 999 mls/hr IV .Q1H1M ONE Stop: 10/30/24 18:28 Last Infusion: 10/30/24 19:03 Dose: Infused Documented By: Admin: 10/30/24 18:02 Dose: 999 mls/hr Documented By: LILLIANA Lorazepam (Lorazepam 0.5 Mg Tablet) 0.5 mg PO X1 ONE Stop: 10/30/24 19:18 Last Admin: 10/30/24 19:33 Dose: 0.5 mg Documented By: JENARO as stated above Consultations Consultation(s) initiated? (list below): No Diagnosis Syncope Differential Diagnosis: other (Psych Differential Diagnosis: other (dystonic reaction, dehydration, electrolyte abnormality, drug use)) Most likely diagnosis given after review of the tests above:: dystonic reaction Admission Indicated Admission indicated?: not indicated Admission Request Was there a request for admission?: No Disposition Plan Disposition Plan: Discharge Discharge Attestation Discharge Attestation: The patient and all family members were given an opportunity to ask questions and understood the discharge instructions. Discharge instructions specifically effects, indications for sooner follow up or return to the emergency department, and the expected course of current diagnosis. Patient condition: Stable Discharge Plan Plan Patient Disposition: HOME (Self Care) Health Concerns: Follow up with Dr. Goldberg as directed Return to Ed if symptoms worsen Prescriptions/Referrals Prescriptions/Med Rec: New lorazepam [Ativan] 0.5 mg tablet 0.5 mg PO BID PRN (Reason: anxiety) Qty: 14 0RF No Action docusate sodium [Colace] 100 mg capsule 100 mg PO BID Qty: 40 0RF olanzapine 20 mg Tablet 25 mg PO QPM fluoxetine [Prozac] 20 mg Capsule 20 mg PO QDAY Referrals: Sally Paulson INSEMINATION WORKER [Primary Care Provider] - In 1 week Problem List Clinical Impression: Dystonic drug reaction, Anxiety Patient/Caregiver Discharge Instructions Education Materials: ED Anxiety Reaction, ED Medicine Reaction, Dystonic Print Language: Serbian Stand Alone Forms: Pam Award Info., Patient Portal Info Letter
[2024-10-30 17:33] LABS: Basophils % (Auto) 0 % (0-2.5); Eosinophils % (Auto) 0 % (0-10); Hematocrit 45.3 % (36.0-46.0); Hemoglobin 15.6 g/dL (12.0-16.0); Immature Granulocytes % (Auto) 0 % (0-0); Immature Granulocytes Auto 0.02 Thou/mm3 (0.00-0.00); Lymphocytes # (Auto) 2.7 Thou/mm3 (1.0-4.8); Lymphocytes % (Auto) 30 % (10-50); Mean Corpuscular HGB Conc 34.4 g/dl (31.0-37.0); Mean Corpuscular Hemoglobin 29.7 pg (25.0-35.0); Mean Corpuscular Volume 86 fL (80-100); Monocytes # (Auto) 0.7 Thou/mm3 (0.0-0.8); Monocytes % (Auto) 8 % (0-12); Neutrophils # (Auto) 5.7 Thou/mm3 (1.8-7.7); Neutrophils % (Auto) 62 % (37-80); Nucleated Red Blood Cell % 0 /100 WBC (0); Platelet Count 277 Thou/mm3 (140-440); RDW Standard Deviation 41.5 fL (36.4-46.3); Red Blood Count 5.25 Miln/mm3 (4.00-5.20); White Blood Count 9.1 Thou/mm3 (3.6-11.0)
[2024-10-30 17:51] VITALS: BP 147/110; PULSE 113; RESP 20; TEMP 36.7; O2SAT 98
[2024-10-30 17:52] LABS: Alanine Aminotransferase 49 U/L (10-49); Albumin, Serum 4.5 gm/dL (3.5-5.0); Albumin/Globulin Ratio 1.7 (1.2-2.2); Alkaline Phosphatase 51 U/L (46-116); Anion Gap 12 (7-16); Aspartate Amino Transferase 31 U/L (0-34); BUN/Creatinine Ratio 6 Ratio (12-20); Bilirubin,Total 0.6 mg/dL (0.3-1.2); Blood Urea Nitrogen < 5 mg/dL (9-23); Calcium 9.7 mg/dL (8.3-10.6); Calcium (Corrected) 9.7 mg/dL (8.5-10.1); Carbon Dioxide 25.9 mMol/L (20.0-31.0); Chloride 102 mMol/L (98-107); Creatinine (Component) 0.8 mg/dL (0.6-1.3); Estimated Creatinine Clearance 112.3 mL/min (>60); Globulin 2.7 gm/dL (2.3-3.5); Glucose 103 mg/dL (74-106); Osmolality,Calculated 276 (275-295); Sodium 140 mMol/L (136-145); Total Protein 7.2 gm/dL (5.7-8.2); eGFR > 60 See Note
[2024-10-30] MEDS: SODIUM CHLORIDE 0.9% 1000 ML 1,000 ML 999 ML IV (18:02)
[2024-10-30 19:29] VITALS: BP 135/99; PULSE 112; RESP 19; TEMP 37.2; O2SAT 98
[2024-10-30] MEDS: LORazepam 0.5 MG TABLET PO (19:33)
[2024-10-30 20:55] VITALS: BP 134/86; PULSE 92; RESP 18; O2SAT 97
== END 2024-10-30 20:56 | disposition home or self-care (01) ==
PROVIDERS: Emergency Provider Emergency Medicine; PCP Nurse Practitioner Family
DX: G24.09 Other drug induced dystonia (principal); F41.9 Anxiety disorder, unspecified; F20.9 Schizophrenia, unspecified; T43.595A Adverse effect of other antipsychotics and neuroleptics, initial encounter
CPT/HCPCS: 36415; 80053; 80307; 81025; 85025; 96360; 99284; J1200; J7030; A9270

== ENCOUNTER 2024-10-31 08:44 | Emergency (ER) | payer MEDICAID, SELFPAY ==
[2024-10-31 08:55] VITALS: BP 136/95; PULSE 116; RESP 20; TEMP 37.9; O2SAT 98
[2024-10-31 09:03] VITALS: PULSE 123; RESP 19; O2SAT 98; BMI 35.2
--- NOTE | 2024-10-31 09:53 | PD.EDAMS ---
Altered Mental Status RME/HPI General Chief Complaint: Altered Mental Status Stated Complaint: ALTERED Time Seen by Provider: 10/31/24 10:01 Arrival date/time: 10/31/24 08:44 RME / HPI RME / HPI narrative: 24 year old female with history of schizophrenia and known episodes of catatonia presents to the ED BIBA from home for evaluation of altered mental status today. Per medics, mother on scene reported the patient has been exhibiting a significant change in behavior with lack of responsiveness and interaction. Evidently the patient was evaluated here yesterday for similar symptoms of altered mental status. Per EMR review, the patient was recently started on Respiradone which has previously been associated with similar reaction. Due to the patients mental status, no further history is obtainable. Related Data Home Medications ?Medication ?Instructions ?Recorded ?Confirmed olanzapine 20 mg tablet 25 mg PO QPM 09/15/21 12/01/22 fluoxetine 20 mg capsule (Prozac) 20 mg PO QDAY 08/21/22 12/01/22 Previous Rx's ?Medication ?Instructions ?Recorded docusate sodium 100 mg capsule 100 mg PO BID #40 caps 06/27/21 (Colace) lorazepam 0.5 mg tablet (Ativan) 0.5 mg PO BID PRN anxiety #14 tabs 10/30/24 Allergies Allergy/AdvReac Type Severity Reaction Status Date / Time No Known Allergies Allergy Verified 10/26/24 06:34 Review of Systems Review of Systems ROS Unobtainable: unobtainable due to mental status Past Medical History Past Medical History RESPIRATORY: Positive Asthma and Bronchitis GASTROINTESTINAL: Positive Gastrointestinal Disorders, Gall Bladder Disease (LAP), Gastroesophageal Reflux Disease and Obesity PSYCHO/SOCIAL: Positive Schizophrenia, Depression, Anxiety and Behavior Problems OTHER HISTORY: Positive Hospitalization Family History FAMILY HISTORY: Positive Family Surgery Surgical History SURGICAL: Positive Abdominal Surgery Social History SMOKING STATUS: Never smoker SUBSTANCE USE: does not use ED Exam Narrative Physical exam: Physical Exam: General: The vital signs were reviewed. Patient has a blank stare on her face when you walk in the room initially gives no eye contact later on she is got her arms in the air just holding them there, the patient is non-toxic, in no apparent distress and appears healthy with a patent airway, no respiratory distress and has no apparent circulatory problems. Head & Scalp: Normocephalic, atraumatic. Face: Appears normal and is without lesions, deformity. Ears: Left external pinna appears normal. Right external pinna appears normal. Eyes: The sclera is anicteric. No obvious photophobia. The Left and Right Orbit/Lid/Conjunctiva appears normal without swelling, discoloration or injection. Nose: The nose is without deformity, discharge or tenderness; Throat: Appears normal. The mucous membranes are pink and moist without exudates, redness or mass seen. The tongue appears normal. Neck: The neck is supple and no apparent mass or adenopathy. Chest: The chest wall is normal in size and symmetry and has no chest wall tenderness or crepitus. The patient displays normal ventilator effort without retractions, accessory muscle use and has adequate air movement bilaterally with no wheezes and no rales. Cardiovascular: Regular rate and rhythm; No murmurs, rubs, or gallops; Gastrointestinal: The abdomen appears normal. No obvious hernias or mass. The abdomen is soft and benign, non-distended, with no pain, no guarding and no rebound tenderness. Bowel sounds are present and normal sounding. No CVA tenderness. Genitourinary: Back/Spine: Normal inspection patient was rolled Extremities/Musculoskeletal/lymphatic: The bilateral upper and lower extremities are warm. There is no evidence of arterial insufficiency. There is no evidence of venous insufficiency/edema. The patient spontaneously moves bilateral upper and lower extremities with no pain and no limitation of movement. There is no apparent, injury or trauma. Skin: The skin is warm, dry and intact. No rashes. No petechia. No purpura. No abnormal bruising. The color is appropriate with no cyanosis. Mental status/Psychiatric: Mental status is catatonic appearance at times other times is a blank stare later she appears anxious. Neurological: The patient is awake, alert, interactive, cordial, cooperative and is oriented to name and situation. The patient follows commands and answers historical question with no impairment. There is no visual disturbance apparent. The pupils are equal and reactive bilaterally with normal eye movements and no diplopia The bilateral upper and lower extremities have normal strength, normal range of motion and normal functioning. The gait, station and balance were not tested due to above mental status changes. Course Quality Measures none Orders Category Date Time Status Alcohol, Blood Medical Stat Lab 10/31/24 10:33 Completed Basic Metabolic Panel Stat Lab 10/31/24 10:33 Completed CBC Stat Lab 10/31/24 10:33 Completed Drug Screen,Urine Stat Lab 10/31/24 10:06 Completed HCG Qualitative,Urine Stat Lab 10/31/24 10:06 Completed Urinalysis Stat Lab 10/31/24 10:06 Completed DiphenhydrAMINE INJ [Benadryl Inj] Med 10/31/24 14:19 Discontinued 25 mg IM X1 ONE Haloperidol Lactate [Haldol Inj] Med 10/31/24 14:18 Discontinued 5 mg IM X1 ONE Vital Signs Vital signs: Vital Signs Temperature 100.3 F 10/31/24 08:55 Pulse Rate 116 H 10/31/24 08:55 Respiratory Rate 20 10/31/24 08:55 Blood Pressure 136/95 H 10/31/24 08:55 Pulse Oximetry (%) 98 10/31/24 08:55 Oxygen Delivery Method Room Air 10/31/24 08:55 Pulse ox is 98% on room air which is adequate. Altered Mental Status MDM Narrative MDM Narrative:: I, Summer Mcmahan, am scribing for and in the presence of Dr. Chris. Patient presents with hallucinations acting strange catatonic movements at times with a history of psychiatric problems. She has not been compliant with her medicines or been some adjustment lately. It is unclear why they changed 1 1 medicine to the other for the mom. Medical workup was done and the patient is medically cleared. White count was 7.4 hemoglobin was 14.4 chemistries are unremarkable BUN was less than 5 and a creatinine was 0.6. Urinalysis is not clean-catch specimen came back with 12 white cells and 33 squames and I am not going to treat this. Drug screen was negative alcohol level is negative patient was medically cleared for psych evaluation and they came and evaluate this patient and now the patient will be transferred to a psych facility once a bed is available.>>>>>>>>> At 1500: Patient has been accepted by Dr. Wolfe at [facility], EMS p/u 20:00 hours. Patient became somewhat agitated about an hour or 2 ago and got injection of Haldol and some Benadryl and is sleeping comfortably Patient data External records reviewed:: [facility] previous records (I reviewed yesterday's ED visit ) and EMS form Clinical information provided by:: EMS Social determinants that could affect healthcare access:: mental health Patient has the following chronic illnesses:: Schizophrenia How is presenting disease/condition affected by chronic disease/condition?: exacerbated by Evaluation data The following diagnostics were reviewed and interpreted by me:: lab results Lab and/or radiology exams considered but not ordered:: None Interpretation Summary: As noted above Medications / Prescriptions Medications or Prescriptions considered but not ordered:: None Medication administrations:: Medication Administration History Discontinued Medications Diphenhydramine HCl (Diphenhydramine Inj 50 Mg/Ml Vial) 25 mg IM X1 ONE Stop: 10/31/24 14:20 Last Admin: 10/31/24 14:45 Dose: 25 mg Documented By: MP Haloperidol Lactate (Haloperidol Lact Inj 5 Mg/Ml Vial) 5 mg IM X1 ONE Stop: 10/31/24 14:19 Last Admin: 10/31/24 14:49 Dose: 5 mg Documented By: MP See above Consultations Consultation(s) initiated? (list below): No Diagnosis Differential diagnosis altered mental status: alcoholic intoxication, altered mental status, hypoglycemia and other (schizophrenia, depression, catatonia) Most likely diagnosis given after review of the tests above:: History of schizophrenia noncompliance catatonic movements hallucinations Admission Indicated Admission indicated?: not indicated Admission Request Was there a request for admission?: No Disposition Plan Disposition Plan: Transfer (to [facility]) Discharge Plan Plan Patient Disposition: [facility] Prescriptions/Referrals Prescriptions/Med Rec: No Action docusate sodium [Colace] 100 mg capsule 100 mg PO BID Qty: 40 0RF olanzapine 20 mg Tablet 25 mg PO QPM lorazepam [Ativan] 0.5 mg tablet 0.5 mg PO BID PRN (Reason: anxiety) Qty: 14 0RF fluoxetine [Prozac] 20 mg Capsule 20 mg PO QDAY Referrals: Sally Paulson NP [Primary Care Provider] - In 1 week Problem List Clinical Impression: Psychosis, Schizophrenia Patient/Caregiver Discharge Instructions Print Language: Italian Stand Alone Forms: Pam Award Info., Patient Portal Info Letter
[2024-10-31 10:03] VITALS: BP 130/95; PULSE 74; RESP 19; TEMP 37.6; O2SAT 99
[2024-10-31 10:24] LABS: Collection Type, Urine Clean Catch
[2024-10-31 10:42] LABS: Amorphous Crystals,Urine Present (Absent); Bacteria,Urine Rare; Bilirubin,Urine Negative (Negative); Blood,Urine 3+ (Negative); Clarity,Urine Turbid (Clear/Hazy); Color,Urine Yellow (Lt Yel-Yel); Glucose, Urine Negative (Negative); Ketones,Urine Trace (Negative); Leukocyte Esterase,Urine Negative (Negative); Nitrite,Urine Negative (Negative); Protein,Urine Negative (Neg - Trace); RBC,Urine 2 /hpf (0-3); Specific Gravity,Urine 1.012 (1.001-1.035); Squamous Epithelial Cell,Urine 33 /hpf (0-5); Urobilinogen,Urine Negative mg/dL (0.0-1.0); WBC,Urine 12 /hpf (0-5)
[2024-10-31 10:47] LABS: HCG Qualitative,Urine Negative
[2024-10-31 10:51] LABS: Basophils % (Auto) 0 % (0-2.5); Eosinophils % (Auto) 0 % (0-10); Hematocrit 41.8 % (36.0-46.0); Hemoglobin 14.4 g/dL (12.0-16.0); Immature Granulocytes % (Auto) 0 % (0-0); Immature Granulocytes Auto 0.01 Thou/mm3 (0.00-0.00); Lymphocytes # (Auto) 2.1 Thou/mm3 (1.0-4.8); Lymphocytes % (Auto) 28 % (10-50); Mean Corpuscular HGB Conc 34.4 g/dl (31.0-37.0); Mean Corpuscular Hemoglobin 29.8 pg (25.0-35.0); Mean Corpuscular Volume 87 fL (80-100); Monocytes # (Auto) 0.5 Thou/mm3 (0.0-0.8); Monocytes % (Auto) 7 % (0-12); Neutrophils # (Auto) 4.8 Thou/mm3 (1.8-7.7); Neutrophils % (Auto) 65 % (37-80); Nucleated Red Blood Cell % 0 /100 WBC (0); Platelet Count 260 Thou/mm3 (140-440); RDW Standard Deviation 41.3 fL (36.4-46.3); Red Blood Count 4.83 Miln/mm3 (4.00-5.20); White Blood Count 7.4 Thou/mm3 (3.6-11.0)
[2024-10-31 10:52] LABS: Amphetamine/Methamp Scrn,U Negative (Negative); Barbiturate Screen,Urine Negative (Negative); Benzodiazepines Screen,Urine Negative (Negative); Benzoylecgonine Screen, Ur Negative (Negative); Fentanyl Screen,Urine Negative (Negative); Opiate Screen,Urine Negative (Negative); THC Screen,Urine Negative (Negative)
--- NOTE | 2024-10-31 11:11 | PC.NURSE ---
Spray Operator aware they need to talk to pt
[2024-10-31 11:48] LABS: Alcohol, Blood Medical < 3.0 mg/dL (0-10.0); Anion Gap 10 (7-16); BUN/Creatinine Ratio 8 Ratio (12-20); Blood Urea Nitrogen < 5 mg/dL (9-23); Calcium 9.1 mg/dL (8.3-10.6); Carbon Dioxide 25.4 mMol/L (20.0-31.0); Chloride 108 mMol/L (98-107); Creatinine (Component) 0.6 mg/dL (0.6-1.3); Glucose 93 mg/dL (74-106); Osmolality,Calculated 282 (275-295); Potassium 3.4 mMol/L (3.4-5.1); Sodium 143 mMol/L (136-145); eGFR > 60 See Note
--- NOTE | 2024-10-31 14:31 | PC.NURSE ---
Sara with [facility] facility called for information regarding pt. Pt. information given. Awaiting acceptance. Mine Supervisor aware.
[2024-10-31] MEDS: DiphenhydrAMINE INJ 50 MG/ML VIAL 25 MG IM (14:45)
[2024-10-31] MEDS: HALOPERIDOL LACT INJ 5 MG/ML VIAL IM (14:49)
[2024-10-31 14:51] VITALS: BP 150/86; PULSE 106; RESP 18; TEMP 37.7; O2SAT 97
--- NOTE | 2024-10-31 14:53 | PC.CC ---
Pt PickardRowena vanegas, is a 24-year-old female brought in to ED by mother voluntary. Restaurant Hostess met with pt to complete bio/social assessment. Pt unable to meaningfully engage with comic book writer. Mother reports Pt has hx of mental health and reports being prescribed MH medications.Mother reports Pt is compliant with medication. Mother denies previous 5150 holds. Pt placed in ED 11. Mother reports Pt reports lives at home and mother is caregiver. ED Certified Midwife encountered Pt for mental health evaluation. ED Certified Midwife used the following interventions: empathy, unconditional positive regard, Socratic dialogue including clarifying and probing questions. Pt was not able to meanfully engage with comic book writer. Pt show responsive to outside stimuli audio/visual. ED Certified Midwife used C-SSRS to support process and assessed for SI/HI, self-harming behaviors, method, access to lethal means, plan/intent. Mother reportes client continues to decline in her mental health is having difficulty with caring for her personal ADLs. ED Certified Midwife consulted with cold working supervisor Arpita Fletcher and it was agreed to place 5150 on a hold DTS due to expressing command audio/visual and her inability to care for her and her declining MH.
--- NOTE | 2024-10-31 14:59 | PC.CC ---
School Aide send out 5150 packet to all accepting [facility] facilites.
--- NOTE | 2024-10-31 14:59 | PC.CC ---
Records Supervisor received acceptance from [facility] from Dr. Wolfe to unit B. Requested ETA 2200.
--- NOTE | 2024-10-31 15:42 | PC.CC ---
Business Taxes Specialist discussed placement acceptance with Mother. Mother was in agreement.
[2024-10-31 16:50] VITALS: BP 143/89; PULSE 114; RESP 18; TEMP 37.7; O2SAT 97
== END 2024-10-31 20:05 ==
PROVIDERS: Emergency Provider Emergency Medicine; PCP Nurse Practitioner Family
DX: F20.9 Schizophrenia, unspecified (principal)
CPT/HCPCS: 36415; 80048; 80307; 80320; 81001; 81025; 85025; 87400; 87811; 90839; 96127; 96372; 99285; J1200; J1630; G0480

== ENCOUNTER 2024-12-03 18:38 | Emergency (ER) | payer MEDICAID, SELFPAY ==
--- NOTE | 2024-12-03 18:42 | PC.NURSE ---
PT DID NOT ANSWER QUESTIONS DURING TRIGE, MOTHER ANSWERED. SHE JUST STARED A THIS NURSE, EXPRESSIONLESS W/ A FLAT AFFECT.
[2024-12-03 19:15] VITALS: BP 125/82; PULSE 87; RESP 17; TEMP 37.2; O2SAT 97; BMI 33.0
--- NOTE | 2024-12-03 19:29 | PD.EDANX ---
ED Anxiety RME/HPI General Chief Complaint: Anxiety Stated Complaint: PANIC ATTACK STARTED A FEW MINUTES AGO Time Seen by Provider: 12/03/24 18:52 Arrival date/time: 12/03/24 18:38 24 year old female present to emergency room with c/o of panic/anxiety attack prior to arrival. denies any SI, hallucination or homicidal thoughts. mother reprot this is patient baseline, has an physician specialist on wednesday to have medication adjustment. SEVERITY: Symptoms are described as being severe with limitations on activities of daily living CONTEXT: The patient is unable to identify any inciting events. DURATION/TIMING: The symptoms started approximately SOFTWARE MAINTENANCE ENGINEER ASSOCIATED SYMPTOMS: The patient is unable to identify any other associated symptoms. MODIFYING FACTORS: The patient is unable to identify any alleviating or aggravating symptoms. PERTINENT ROS: no fevers, no chest pain/shortness of breath no nausea,vomiting, diarrhea, no dizziness/headache no rash no loc/syncope episode REVIEW OF SYSTEMS: See History of Present Illness - with the exception of those mentioned in the history of present illness, all other systems reviewed and reported as negative GENERAL: In general the patient is awake, interactive, in an emergency department gurney. HEAD/EYES/EARS/NOSE/THROAT: normo-cephalic, atraumatic, mucus membranes are moist, anicteric, palpebral conjunctiva is pink, trachea is midline. CARDIOVASCULAR: regular rate and regular rhythm, no murmurs, heart sounds are not distant, strong pulses in all four extremities that are equal and symmetric bilateral upper and lower extremities, normal capillary refill. CHEST/PULMONARY: normal chest rise and fall, good air movement, clear to auscultation bilaterally, normal inspiratory to expiratory ratios without evidence of respiratory distress. NECK: No midline/Paraspinal tenderness, no step off ROM/Strenght intact No Kernig and bruzinski sign. No trauma ABDOMEN: soft, not tender, no masses appreciated BACK: normal range of motion without pain. NEUROLOGICAL: cranio-facial features are symmetric, moves all four extremities equally without obvious limitations or weakness. EXTREMITY: no tenderness to palpation over the long bones or large joints of the bilateral upper and lower extremities, no joint swelling, no joint erythema, no signs of trauma, no unilateral leg swelling and no peripheral edema. SKIN: warm, dry, well-perfused, no jaundice, no rash, no telangiectasias or petechia. PSYCH: calm, cooperative, no evidence of psychosis or agitation Related Data Home Medications ?Medication ?Instructions ?Recorded ?Confirmed olanzapine 20 mg tablet 25 mg PO QPM 09/15/21 12/01/22 fluoxetine 20 mg capsule (Prozac) 20 mg PO QDAY 08/21/22 12/01/22 Previous Rx's ?Medication ?Instructions ?Recorded docusate sodium 100 mg capsule 100 mg PO BID #40 caps 06/27/21 (Colace) lorazepam 0.5 mg tablet (Ativan) 0.5 mg PO BID PRN anxiety #14 tabs 10/30/24 lorazepam 0.5 mg tablet (Ativan) 0.5 mg PO BID PRN anxiety #10 tabs 12/03/24 Allergies Allergy/AdvReac Type Severity Reaction Status Date / Time No Known Allergies Allergy Verified 12/03/24 18:40 Course Course Course Narrative: Patient presenting with anxiety without evidence for suicidal ideation. Medical review of systems negative, no obvious disease on medical screening exam.? Patient provided ativan? ? Following which, patient stated they felt improved.? Patient monitored for a period of 2 hours.? Discussed supportive therapies, including going to bed at the same time every evening, regular exercise such as stretching and aerobics in the AM, using relaxation techniques such as muscle relaxation/imagery/massage/warm baths/etc, yoga, refrain from caffeinated and EtOH beverages in the PM, talking to family/friends or support group, taking up a hobby, listening to music or watching movies, deep breathing exercises, sleep hygiene, eating a healthy diet.? Discussed following up with primary care provider or mental health professional.? Patient discharged in stable, ambulatory condition.?? Plan:? Discharge from ED Patient instructed that if having thoughts of suicide, please call a doctor, friend, or family member and report to the nearest ER or hospital.?? Prescribed bridge of lorazepam .05mg #10 Follow up with pcp or mental health provider in 2 days.?? Instructed Pt to f/up w/ PCP or ETC should symptoms worsen or not improve. Pt verbally expressed understanding and all questions were addressed to Pt's satisfaction. Quality Measures none Orders Category Date Time Status LORazepam [Ativan] Med 12/03/24 19:24 Discontinued 0.5 mg PO X1 ONE Reevaluation(s) Reevaluation #1: pt is feeling better. Vital Signs Vital signs: Vital Signs Temperature 98.9 F 12/03/24 19:15 Pulse Rate 87 12/03/24 19:15 Respiratory Rate 17 12/03/24 19:15 Blood Pressure 125/82 12/03/24 19:15 Pulse Oximetry (%) 97 12/03/24 19:15 Oxygen Delivery Method Room Air 12/03/24 19:15 Anxiety Patient data External records reviewed:: [facility] previous records Clinical information provided by:: patient and parent Social determinants that could affect healthcare access:: none Patient has the following chronic illnesses:: anxiety How is presenting disease/condition affected by chronic disease/condition?: exacerbated by Evaluation data The following diagnostics were reviewed and interpreted by me:: other (specify) (n/a ) Lab and/or radiology exams considered but not ordered:: n/a Interpretation Summary: na Medications / Prescriptions Medications or Prescriptions considered but not ordered:: na Medication administrations:: Medication Administration History Discontinued Medications Lorazepam (Lorazepam 0.5 Mg Tablet) 0.5 mg PO X1 ONE Stop: 12/03/24 19:25 Consultations Consultation(s) initiated? (list below): No Diagnosis Most likely diagnosis given after review of the tests above:: anxiety Admission Indicated Admission indicated?: not indicated Admission Request Was there a request for admission?: No Disposition Plan Disposition Plan: Discharge Discharge Attestation Discharge Attestation: The patient and all family members were given an opportunity to ask questions and understood the discharge instructions. Discharge instructions specifically effects, indications for sooner follow up or return to the emergency department, and the expected course of current diagnosis. Patient condition: Stable Discharge Plan Plan Patient Disposition: HOME (Self Care) Health Concerns: Follow up with specialist as schedule Return to ED if symptoms worsen Prescriptions/Referrals Prescriptions/Med Rec: New lorazepam [Ativan] 0.5 mg tablet 0.5 mg PO BID PRN (Reason: anxiety) Qty: 10 0RF No Action docusate sodium [Colace] 100 mg capsule 100 mg PO BID Qty: 40 0RF olanzapine 20 mg Tablet 25 mg PO QPM lorazepam [Ativan] 0.5 mg tablet 0.5 mg PO BID PRN (Reason: anxiety) Qty: 14 0RF fluoxetine [Prozac] 20 mg Capsule 20 mg PO QDAY Referrals: Sally Paulson SPEAKING UNIT ASSEMBLER [Primary Care Provider] - In 1 week Problem List Clinical Impression: Acute anxiety Patient/Caregiver Discharge Instructions Education Materials: ED Anxiety Reaction Print Language: Icelandic Stand Alone Forms: Pam Award Info., Patient Portal Info Letter
[2024-12-03] MEDS: LORazepam 0.5 MG TABLET PO (19:30)
== END 2024-12-03 20:46 | disposition home or self-care (01) ==
PROVIDERS: Emergency Provider Emergency Medicine; PCP Nurse Practitioner Family
DX: F41.9 Anxiety disorder, unspecified (principal)
CPT/HCPCS: 99282; A9270

== ENCOUNTER 2024-12-04 11:01 | Emergency (ER) | payer MEDICAID, SELFPAY ==
[2024-12-04 11:02] VITALS: BMI 33.3
[2024-12-04 11:28] VITALS: BP 130/94; PULSE 85; RESP 18; TEMP 36.5; O2SAT 99
--- NOTE | 2024-12-04 11:54 | PD.EDADULT ---
ED General RME/HPI General Chief complaint: Psychiatric Symptoms Stated complaint: WANTS BLOOD WORK, SENT BY PMD Time Seen by Provider: 12/04/24 11:51 Arrival date/time: 12/04/24 11:01 CC: Auditory hallucination HPI patient presents to the ER stating that the TV at home is talking to her even though she is sitting in the emergency room. Patient denies suicidal ideation homicidal ideation or visual hallucinations. Patient is hyperactive, patient was seen here yesterday given lorazepam which did make her sleepy. Patient was then reported to have gone to her PCP with her mother who then brought her here. Related Data Home Medications ?Medication ?Instructions ?Recorded ?Confirmed olanzapine 20 mg tablet 25 mg PO QPM 09/15/21 12/01/22 fluoxetine 20 mg capsule (Prozac) 20 mg PO QDAY 08/21/22 12/01/22 Previous Rx's ?Medication ?Instructions ?Recorded docusate sodium 100 mg capsule 100 mg PO BID #40 caps 06/27/21 (Colace) lorazepam 0.5 mg tablet (Ativan) 0.5 mg PO BID PRN anxiety #14 tabs 10/30/24 lorazepam 0.5 mg tablet (Ativan) 0.5 mg PO BID PRN anxiety #10 tabs 12/03/24 Allergies Allergy/AdvReac Type Severity Reaction Status Date / Time No Known Allergies Allergy Verified 12/04/24 11:03 Review of Systems Review of Systems Narrative Review of Systems: GEN: No fever, no chills, no weight loss EYES: No discharge, no visual changes, no pain HEENT: No ear pain, no congestion, no sore throat PULM: No shortness of breath, no cough, no congestion CV: No chest pain, no dyspnea on exertion, no palpitations GI: No nausea, no vomiting, no diarrhea, no pain, no constipation : No frequency, no urgency, no dysuria MUSC/SKEL: No joint pain, no back pain SKIN: No rash PSYCH: + hallucinations, no depression HEME/LYMPH: No easy bleeding or bruising tendencies NEURO: No weakness, no headache Past Medical History Past Medical History NEUROLOGIC: Negative Neurological Disorders or Seizures CARDIAC: Negative Cardiac Disorders, Congestive Heart Failure, Edema, Cellulitis or Varicose Veins RESPIRATORY: Positive Asthma and Bronchitis; Negative Chronic Obstructive Pulmonary Disease (COPD), Pneumonia, Tuberculosis or Sleep Apnea GASTROINTESTINAL: Positive Gastrointestinal Disorders, Gall Bladder Disease, Gastroesophageal Reflux Disease and Obesity; Negative Hepatitis GENITOURINARY: Negative Genitourinary Disorders or Renal Disease REPRODUCTIVE: Negative Pelvic Inflammatory Disease or Previous Pregnancies MUSCULOSKELETAL: Negative Musculoskeletal Disorders ENDOCRINE: Negative Endocrine Disorders, Diabetes Mellitus Type 1 or Diabetes Mellitus Type 2 HEMATOLOGIC: Negative Blood Disorders PSYCHO/SOCIAL: Positive Schizophrenia, Depression, Anxiety and Behavior Problems OTHER HISTORY: Positive Hospitalization; Negative Autoimmune Disease, Shingles, Falls, Blood Transfusions, Anesthesia Reactions, Chemotherapy, Radiation Therapy, MRSA, Vancomycin-Resistant Enterococci, Human Immunodeficiency Virus (HIV), Chicken Pox, Measles, Mumps, Rubella (Nepali Measles), Pertussis, Clostridium Difficile or Cancer Family History FAMILY HISTORY: Positive Family Surgery; Negative Family Psychiatric Problems, Family Respiratory Disorders, Family Cardiac Disorders, Family Gastrointestinal Problems, Family Cancer or Family Anesthesia Reaction Surgical History SURGICAL: Positive Abdominal Surgery; Negative Cardiac Surgery, Pacemaker, Endocrine Surgery, Ear Surgery, Nephrectomy, Joint Replacement, Neurologic Surgery or Mastectomy Social History SMOKING STATUS: Never smoker SUBSTANCE USE: does not use ED Exam Narrative Physical exam: [General: Obese not in any acute distress Head normocephalic HEENT: Within acceptable limits Neck is supple nontender Chest equal chest rise nontender to palpation Respiratory: Clear to auscultation no wheezes crackles or rubs CV: Rate rhythm is regular no murmurs rubs or clicks Abdomen is distended secondary to body habitus soft nontender no masses positive bowel sounds all 4 quadrants Back: No CVA tenderness no spinous process tenderness from cervical spine thoracic and lumbar spine Skin: Intact no petechiae rash induration ulceration or crepitus Extremities: Moving all extremity against resistance cap refill less than 2 seconds neurosensory intact Neuro: Awake alert oriented x2, person and place Glascow coma 15 no focal deficits] Course Course Course Narrative: Patient seen by crisis management who agrees patient can be discharged home to follow-up with the mother she has outpatient affiliation already. Quality Measures none Orders Category Date Time Status Alcohol, Urine Stat Lab 12/04/24 13:17 Completed CBC Stat Lab 12/04/24 12:00 Completed CMP [Comprehensive Metabolic Panel] Stat Lab 12/04/24 12:00 Completed Drug Screen,Urine Stat Lab 12/04/24 13:17 Completed HCG Qualitative,Urine Stat Lab 12/04/24 13:17 Completed Sterile Water Med 12/04/24 14:00 Discontinued 1.2 ml IM X1 ONE Ziprasidone Inj [Geodon Inj] Med 12/04/24 13:45 Discontinued 20 mg IM X1 ONE Vital Signs Vital signs: Vital Signs Temperature 97.7 F 12/04/24 11:28 Pulse Rate 85 12/04/24 11:28 Respiratory Rate 18 12/04/24 11:28 Blood Pressure 130/94 H 12/04/24 11:28 Pulse Oximetry (%) 99 12/04/24 11:28 Oxygen Delivery Method Room Air 12/04/24 11:28 Discharge Plan Plan Patient Disposition: HOME (Self Care) Patient condition on transfer: Stable Prescriptions/Referrals Prescriptions/Med Rec: No Action docusate sodium [Colace] 100 mg capsule 100 mg PO BID Qty: 40 0RF olanzapine 20 mg Tablet 25 mg PO QPM lorazepam [Ativan] 0.5 mg tablet 0.5 mg PO BID PRN (Reason: anxiety) Qty: 14 0RF fluoxetine [Prozac] 20 mg Capsule 20 mg PO QDAY lorazepam [Ativan] 0.5 mg tablet 0.5 mg PO BID PRN (Reason: anxiety) Qty: 10 0RF Referrals: Sally Paulson, PROTECTIVE SIGNAL REPAIRER [Primary Care Provider] - In 1 week Problem List Clinical Impression: Auditory hallucination Patient/Caregiver Discharge Instructions Education Materials: ED Schizophrenia, General Print Language: Icelandic Stand Alone Forms: Pam Award Info., Patient Portal Info Letter PA/COPY CENTER ASSOCIATE Supervising Physician PA/COPY CENTER ASSOCIATE Supervising Physician: Casey Walker MDM Patient Acuity Low Acuity (complete MDM as needed) Narrative: Patient has a history of psychosis and anxiety with multiple visits to the emergency room for the same. Patient cleared for eval at 1446 Clinical Information Provided by: patient Medical Records reviewed [facility] Labs/Rad/Tests considered, not ordered Describe: CBC shows no acute leukocytosis anemia thrombocytopenia CMP shows no acute electrolyte imbalances renal impairment transaminitis is negative UDS is negative. Medication Administration(s) Medication Administration History Discontinued Medications Sterile Water (Water, Sterile Inj 10 Ml Vial) 1.2 ml IM X1 ONE Stop: 12/04/24 14:01 Ziprasidone (Ziprasidone Inj 20 Mg/Ml Vial (Non-Formulary)) 20 mg IM X1 ONE Stop: 12/04/24 13:46
[2024-12-04 12:22] LABS: Basophils % (Auto) 0 % (0-2.5); Eosinophils % (Auto) 0 % (0-10); Hematocrit 39.8 % (36.0-46.0); Hemoglobin 13.4 g/dL (12.0-16.0); Immature Granulocytes % (Auto) 0 % (0-0); Immature Granulocytes Auto 0.03 Thou/mm3 (0.00-0.00); Lymphocytes # (Auto) 2.1 Thou/mm3 (1.0-4.8); Lymphocytes % (Auto) 24 % (10-50); Mean Corpuscular HGB Conc 33.7 g/dl (31.0-37.0); Mean Corpuscular Hemoglobin 28.7 pg (25.0-35.0); Mean Corpuscular Volume 85 fL (80-100); Monocytes # (Auto) 0.4 Thou/mm3 (0.0-0.8); Monocytes % (Auto) 5 % (0-12); Neutrophils # (Auto) 6.4 Thou/mm3 (1.8-7.7); Neutrophils % (Auto) 71 % (37-80); Nucleated Red Blood Cell % 0 /100 WBC (0); Platelet Count 289 Thou/mm3 (140-440); RDW Standard Deviation 38.2 fL (36.4-46.3); Red Blood Count 4.67 Miln/mm3 (4.00-5.20)
[2024-12-04 12:40] LABS: Alanine Aminotransferase 20 U/L (10-49); Albumin, Serum 4.3 gm/dL (3.5-5.0); Anion Gap 9 (7-16); Aspartate Amino Transferase 13 U/L (0-34); BUN/Creatinine Ratio 15 Ratio (12-20); Bilirubin,Total 0.6 mg/dL (0.3-1.2); Blood Urea Nitrogen 9 mg/dL (9-23); Calcium 9.5 mg/dL (8.3-10.6); Calcium (Corrected) 9.5 mg/dL (8.5-10.1); Carbon Dioxide 25.3 mMol/L (20.0-31.0); Chloride 102 mMol/L (98-107); Creatinine (Component) 0.6 mg/dL (0.6-1.3); Estimated Creatinine Clearance 145.2 mL/min (>60); Glucose 85 mg/dL (74-106); Osmolality,Calculated 269 (275-295); Potassium 3.7 mMol/L (3.4-5.1); Sodium 136 mMol/L (136-145); Total Protein 7.3 gm/dL (5.7-8.2); eGFR > 60 See Note
[2024-12-04 12:41] LABS: Albumin/Globulin Ratio 1.4 (1.2-2.2); Alkaline Phosphatase 73 U/L (46-116)
[2024-12-04 14:20] LABS: HCG Qualitative,Urine Negative
[2024-12-04 14:44] LABS: Alcohol, Urine Negative (Negative); Amphetamine/Methamp Scrn,U Negative (Negative); Barbiturate Screen,Urine Negative (Negative); Benzodiazepines Screen,Urine Negative (Negative); Benzoylecgonine Screen, Ur Negative (Negative); Fentanyl Screen,Urine Negative (Negative); Opiate Screen,Urine Negative (Negative); THC Screen,Urine Negative (Negative)
[2024-12-04 14:49] VITALS: BP 118/77; PULSE 72; RESP 16; TEMP 36.7; O2SAT 99
--- NOTE | 2024-12-04 15:44 | PC.CC ---
1500- Pt is a 24 yo female, who came to the ED with sxs of panic/anxiety attack concerns. Per provider notes, pt denies any SI, hallucination or homicidal thoughts. ANASTASIAW William Guevara completed a face to face assessment with the pt at bedside. Upon entry, pt was reading her book, was friendly and was cooperative. Pt was able to inform chief underwriter that her PCP is someone from [facility] and she sees Dr. Crump at [facility]. Pt stated that since she was provided medication for anxiety here a the ED, she is ready for d/c. Database Engineer asked permission to call Next of Kin, Georgie Pickard [phone], and pt said, Yes. Database Engineer then called the next of Kin, Georgie, who stated she is the pts mother. Georgie stated the pt has an upcoming appointment with Dr. Crump on 12/15/24 and has an upcoming appointment with KINGSLEY Zavala at [facility] so she can prescribe an anti-anxiety medication for the pt. Georgie stated she will discuss this also with the ER medical provider so the pt can have and anti anxiety medication upon discharge. Georgie stated she will be coming to the ER within 20 minutes to warp picker the pt as she is ready for d/c.
[2024-12-04] MEDS: WATER, STERILE INJ 10 ML VIAL 1.2 ML IM (16:02)
[2024-12-04] MEDS: ZIPRASIDONE INJ 20 MG/ML VIAL (NON-FORMULARY) IM (16:02)
== END 2024-12-04 16:03 | disposition home or self-care (01) ==
PROVIDERS: Nurse Practitioner Primary Care; Emergency Provider Family Medicine; PCP Nurse Practitioner Family
DX: R44.0 Auditory hallucinations (principal)
CPT/HCPCS: 36415; 80053; 80307; 80320; 81025; 85025; 96127; 96372; 99283; A4216; J3486; G0480

== ENCOUNTER 2024-12-06 08:46 | Emergency (ER) | payer MEDICAID, SELFPAY ==
[2024-12-06 08:56] VITALS: BP 122/87; PULSE 99; RESP 18; TEMP 36.8; O2SAT 97
[2024-12-06 09:35] LABS: HCG Qualitative,Urine Negative
[2024-12-06 10:24] LABS: Basophils % (Auto) 0 % (0-2.5); Eosinophils % (Auto) 0 % (0-10); Hematocrit 40.9 % (36.0-46.0); Hemoglobin 13.6 g/dL (12.0-16.0); Immature Granulocytes % (Auto) 0 % (0-0); Immature Granulocytes Auto 0.02 Thou/mm3 (0.00-0.00); Lymphocytes # (Auto) 1.8 Thou/mm3 (1.0-4.8); Lymphocytes % (Auto) 21 % (10-50); Mean Corpuscular HGB Conc 33.3 g/dl (31.0-37.0); Mean Corpuscular Hemoglobin 29.3 pg (25.0-35.0); Mean Corpuscular Volume 88 fL (80-100); Monocytes # (Auto) 0.5 Thou/mm3 (0.0-0.8); Monocytes % (Auto) 6 % (0-12); Neutrophils # (Auto) 6.3 Thou/mm3 (1.8-7.7); Neutrophils % (Auto) 73 % (37-80); Nucleated Red Blood Cell % 0 /100 WBC (0); Platelet Count 306 Thou/mm3 (140-440); RDW Standard Deviation 39.4 fL (36.4-46.3); Red Blood Count 4.64 Miln/mm3 (4.00-5.20); White Blood Count 8.6 Thou/mm3 (3.6-11.0)
[2024-12-06 10:37] LABS: Alcohol, Urine Negative (Negative); Barbiturate Screen,Urine Negative (Negative); Benzodiazepines Screen,Urine Negative (Negative); Benzoylecgonine Screen, Ur Negative (Negative); Fentanyl Screen,Urine Negative (Negative); Opiate Screen,Urine Negative (Negative)
[2024-12-06 10:43] LABS: Alanine Aminotransferase 15 U/L (10-49); Albumin, Serum 4.5 gm/dL (3.5-5.0); Albumin/Globulin Ratio 1.7 (1.2-2.2); Alkaline Phosphatase 69 U/L (46-116); Anion Gap 7 (7-16); Aspartate Amino Transferase 12 U/L (0-34); BUN/Creatinine Ratio 8 Ratio (12-20); Bilirubin,Total 0.4 mg/dL (0.3-1.2); Blood Urea Nitrogen < 5 mg/dL (9-23); Calcium 9.1 mg/dL (8.3-10.6); Calcium (Corrected) 9.1 mg/dL (8.5-10.1); Carbon Dioxide 25.5 mMol/L (20.0-31.0); Chloride 109 mMol/L (98-107); Creatinine (Component) 0.6 mg/dL (0.6-1.3); Globulin 2.6 gm/dL (2.3-3.5); Glucose 93 mg/dL (74-106); Osmolality,Calculated 278 (275-295); Potassium 4.3 mMol/L (3.4-5.1); Sodium 141 mMol/L (136-145); Total Protein 7.1 gm/dL (5.7-8.2); eGFR > 60 See Note
--- NOTE | 2024-12-06 10:47 | EDNOTE_ITS ---
ED Psych RME/HPI General Chief Complaint: General Adult/Misc Complain Stated Complaint: DOESN'T FEEL GOOD, GOING CRAZY Arrival date/time: 12/06/24 08:46 RME / HPI RME / HPI Narrative: 24 year old female with history of schizophrenia presents to the ED brought in by mother for evaluation of not feeling well today. Patient states I'm going crazy , further adding she is not able to stay still, is hearing voices, can hear cars driving by fast, and feels everyone that looks at her wants to hurt her. Additionally reports not feeling safe at home. Patient states I can't go home, I don't feel safe, I feel like I'm driving my parents and brothers insane . Mother at bedside states patient is laughing inappropriately and noncompliant with medication regimen due to causing hair loss. Last took several days ago. No other symptoms reported. Denies fevers, chills, cough, abd pain, n/v/d, or urinary symptoms. Mother mentioned patient does have an appointment with psychiatrist on 12/15/2024. Related Data Home Medications ?Medication ?Instructions ?Recorded ?Confirmed olanzapine 20 mg tablet 25 mg PO QPM 09/15/21 fluoxetine 20 mg capsule (Prozac) 20 mg PO QDAY 12/01/22 Previous Rx's ?Medication ?Instructions ?Recorded docusate sodium 100 mg capsule 100 mg PO BID #40 caps 06/27/21 (Colace) lorazepam 0.5 mg tablet (Ativan) 0.5 mg PO BID PRN anx iety #14 tabs 10/30/24 lorazepam 0.5 mg tablet (Ativan) 0.5 mg PO BID PRN anx iety #10 tabs 12/03/24 Allergies Allergy/AdvReac Type Severity Reaction Status Date / Time No Known Allergies Allergy Verified 12/06/24 08:49 Review of Systems Review of Systems Narrative Review of Systems: Constitutional: DENIES; Fevers Eyes: DENIES; Loss of vision Head/Ear/Nose: DENIES; Loss of hearing Throat: DENIES; Dysphagia Cardiovascular: DENIES; Chest pain, dyspnea or syncope Respiratory: DENIES; Shortness of breath Gastrointestinal: DENIES; Rectal bleeding or melena. Genitourinary: DENIES; Dysuria (painful or difficult urination) Musculoskeletal: DENIES; Arthralgia (pain in a joint),; Skin: DENIES; Rash Neurological: DENIES; Loss of function or movement Psychiatric: SEE HPI Endocrinology: DENIES; Weight change Hematologic/Lymphatic: DENIES; Abnormal bruising Allergic/Immunologic: DENIES; Urticaria (hives) Past Medical History Past Medical History RESPIRATORY: Positive Asthma and Bronchitis GASTROINTESTINAL: Positive Gastrointestinal Disorders, Gall Bladder Disease, Gastroesophageal Reflux Disease and Obesity PSYCHO/SOCIAL: Positive Psychiatric Problems, Schizophrenia, Depression, Anxiety and Behavior Problems OTHER HISTORY: Positive Hospitalization Family History FAMILY HISTORY: Positive Family Surgery Surgical History SURGICAL: Positive Abdominal Surgery Social History SMOKING STATUS: Never smoker SUBSTANCE USE: does not use ED Exam Narrative Physical exam: Physical Exam: General: The vital signs were reviewed. Laughing inappropriately the patient is non-toxic, in no apparent distress and appears healthy with a patent airway, no respiratory distress and has no apparent circulatory problems. Head & Scalp: Normocephalic, atraumatic. Face: Appears normal and is without lesions, deformity. Ears: Left external pinna appears normal. Right external pinna appears normal. Eyes: The sclera is anicteric. No obvious photophobia. The Left and Right Orbit/Lid/Conjunctiva appears normal without swelling, discoloration or injection. Nose: The nose is without deformity, discharge or tenderness; Throat: Appears normal. The mucous membranes are pink and moist without exudates, redness or mass seen. The tongue appears normal. Neck: The neck is supple and no apparent mass or adenopathy. Chest: The chest wall is normal in size and symmetry and has no chest wall tenderness or crepitus. The patient displays normal ventilator effort without retractions, accessory muscle use and has adequate air movement cindi aterally with no wheezes and no rales. Cardiovascular: Regular rate and rhythm; No murmurs, rubs, or gallops; Gastrointestinal: The abdomen appears normal. No obvious hernias or mass. The abdomen is soft and benign, non-distended, with no pain, no guarding and no rebound tenderness. Bowel sounds are present and normal sounding. No CVA tenderness. Genitourinary: Back/Spine: Extremities/Musculoskeletal/lymphatic: The bilateral upper and lower extremities are warm. There is no evidence of arterial insufficiency. There is no evidence of venous insufficiency/edema. The patient spontaneously moves bilateral upper and lower extremities with no pain and no limitation of movement. There is no apparent, injury or trauma. Skin: The skin is warm, dry and intact. No rashes. No petechia. No purpura. No abnormal bruising. The color is appropriate with no cyanosis. Mental status/Psychiatric: Mental status is outbursts of laughing stating she is crazy does not want to go home The patient has no apparent delusions, visual hallucinations, no apparent audible hallucinations. Appears preoccupied The patient has no apparent suicidal thoughts/ideation and no apparent homicidal thoughts/ideation. Neurological: The patient is awake, alert, interactive, cordial, cooperative and is oriented to name and situation. The patient follows commands and answers historical question with no impairment. There is no visual disturbance apparent. The pupils are equal and reactive bilaterally with normal eye movements and no diplopia The bilateral upper and lower extremities have normal strength, normal range of motion and normal functioning. The gait, station and balance appear to be baseline with no acute change Course Quality Measures none Orders Category Date Time Status Alcohol, Urine Stat Lab 12/06/24 09:02 Completed CBC Stat Lab 12/06/24 10:17 Completed CMP [Comprehensive Metabolic Panel] Stat Lab 12/06/24 10:17 Completed Drug Screen,Urine Stat Lab 12/06/24 09:02 Completed HCG Qualitative,Urine Stat Lab 12/06/24 09:02 Completed Docusate Sod [Colace] Med 12/06/24 13:13 Discontinued 100 mg PO X1 ONE LORazepam [Ativan Inj] Med 12/06/24 13:12 Discontinued 2 mg IM X1 ONE Ondansetron Odt [Zofran Odt] Med 12/06/24 13:07 Discontinued 4 mg PO X1 ONE Vital Signs Vital signs: Vital Signs Temperature 98.3 F 12/06/24 08:56 Pulse Rate 99 12/06/24 08:56 Respiratory Rate 18 12/06/24 08:56 Blood Pressure 122/87 H 12/06/24 08:56 Pulse Oximetry (%) 97 12/06/24 08:56 Oxygen Delivery Method Room Air 12/06/24 08:56 Pulse ox is 97% on room air which is adequate. Psych MDM Narrative MDM Narrative:: Patient has history of schizophrenia and has not taken her medicines for at least 3 days and is declining in her functioning. Patient CBC and CHEM panel are unremarkable. Urine drug screen is positive both amphetamines and marijuana. Close of these were denied by the patient and the mother. When back in the room as the drug screen is inconsistent with the patient's history and patient adamantly denies this. Mother states she did go to the brother's house yesterday where they might of been smoking marijuana.>> Later on we found at the lab Meted air and that there was no methamphetamine or marijuana in this patient's system consistent with all the past urine drug screens.>> I went back in the room and apologized to the patient and later the mother returned I informed her also. Nonetheless we will have mental health come by and evaluate this patient. As the patient is medically clear for placement. >>>>>>>>>>> after imelda luation they felt the patient should be hospitalized she clearly is psychotic probably not taking her medicines as prescribed also she is complaining of hair loss due to her Risperdal which she is a known side 1300: Patient has been evaluated by our ASW and placed on a 5150 hold, at this time pending [facility] facility placement. 1340: Patient has been accepted for transfer to [facility]. Patient be noted patient had some minor outbursts but calm fairly quickly. She has been informally 5150awaiting transfer to [facility] in [facility]. Patient data External records reviewed:: [facility] previous records (I reviewed ED visit on 12/04/2024 ) Clinical information provided by:: patient and parent (Mother adds to hpi ) Social determinants that could affect healthcare access:: mental health Patient has the following chronic illnesses:: Schizophrenia, medication noncompliance How is presenting disease/condition affected by chronic disease/condition?: exacerbated by Evaluation data The following diagnostics were reviewed and interpreted by me:: lab results Lab and/or radiology exams considered but not ordered:: None Interpretation Summary: As noted above Medications / Prescriptions Medications or Prescriptions considered but not ordered:: None Medication administrations:: Medication Administration History Discontinued Medications Docusate Sodium (Docusate Sod 100 Mg Capsule) 100 mg PO X1 ONE; Protocol Stop: 12/06/24 13:14 Last Admin: 12/06/24 13:31 Dose: 100 mg Documented By: UNIQUE Lorazepam (Lorazepam 2 Mg/Ml Vial) 2 mg IM X1 ONE Stop: 12/06/24 13:13 Last Admin: 12/06/24 13:31 Dose: 2 mg Documented By: UNIQUE Ondansetron HCl (Ondansetron Odt 4 Mg Tabrap) 4 mg PO X1 ONE; Protocol Stop: 12/06/24 13:08 Last Admin: 12/06/24 13:30 Dose: 4 mg Documented By: UNIQUE See above Consultations Consultation(s) initiated? (list below): No Diagnosis Psych Differential Diagnosis: acute psychosis, chronic schizophrenia, bipolar disorder, depression, drug-induced psychotic disorder and acute anxiety Most likely diagnosis given after review of the tests above:: Psychosis secondary to known schizophrenia and noncompliance with medications. Admission Indicated Admission indicated?: not indicated Admission Request Was there a request for admission?: No Disposition Plan Disposition Plan: Transfer (to [facility]) Discharge Plan Plan Patient Disposition: [facility] Prescriptions/Referrals Prescriptions/Med Rec: No Action docusate sodium [Colace] 100 mg capsule 100 mg PO BID Qty: 40 0RF olanzapine 20 mg Tablet 25 mg PO QPM lorazepam [Ativan] 0.5 mg tablet 0.5 mg PO BID PRN (Reason: anxiety) Qty: 14 0RF fluoxetine [Prozac] 20 mg Capsule 20 mg PO QDAY lorazepam [Ativan] 0.5 mg tablet 0.5 mg PO BID PRN (Reason: anxiety) Qty: 10 0RF Referrals: Sally Paulson, AUTOMATION AND CONTROL ENGINEER [Primary Care Provider] - In 1 week Problem List Clinical Impression: Marijuana use, Acute psychosis, Methamphetamine abuse Impression comment: Note this patient today has both methamphetamine and marijuana positive on the urine drug screen and all previous drug screens in the past were all negative. Patient denies this so the source of this is unclear. Patient/Caregiver Discharge Instructions Print Language: Indian Stand Alone Forms: Pam Award Info., Patient Portal Info Letter
[2024-12-06 11:40] LABS: Amphetamine/Methamp Scrn,U Negative (Negative)
[2024-12-06 11:41] LABS: THC Screen,Urine Negative (Negative)
[2024-12-06 12:33] VITALS: BP 126/82; PULSE 87; RESP 18; TEMP 37; O2SAT 99
--- NOTE | 2024-12-06 12:47 | PC.CC ---
Patient is a 24 year-old female who presents to the hospital for mental health evaluation ?Doesn?t feel good, going crazy.? ASWCharis and YUNG Schulz made face to face contact with the patient introduced self?s, role, and reason for visit. Patient provided consent for Deanna LAKE to remain in the room. Patient presents as unkempt and dishelved with her hair matted. Patient appears to be responding to internal stimuli as she was talking to herself during assessment. During assessment patient stated, ?I can?t answer your questions, I can?t think straight.? ASW attempted to re-engage patient by asking open ended questions. Patient continued to state she cannot answer questions for this screenplay writer. Patient stated, ?I feel crazy, sad, and depressed.? ASW attempted to get consent to make telephone contact with patient?s mother Georgie; however, patient denied consent for collateral information. Patient scored low-risk on [place] Screening. ASW completed a chart review it was noted on previous visits that patient has a mental health diagnosis of Schizophrenia. Patient is followed by outpatient mental health services [facility], Psychiatrist, . Patient?s next appointment is December 15, 2024. ASW re-attempted to get consent from patient to make contact with her mother, Georgie for collateral information. Patient provided consent for contact with mother. ASW attempted to re-engage patient for assessment. Patient continues to report she is unable to engage in assessment. ASW made telephone contact with mother, Georgie for collateral information but she did not answer. ASW attempted again at 12:27pm. Upon clinical consultation with Arpita MARTINEZ the patient will be placed on a 5150-hold for gravely disabled. ASW provided update on discharge plan to [facility] Facility to Dr. Chris, golf manager Denise, and bedside CAMPBELL Mancini.
[2024-12-06] MEDS: ONDANSETRON ODT 4 MG TABRAP PO (13:30)
[2024-12-06] MEDS: DOCUSATE SOD 100 MG CAPSULE PO (13:31)
[2024-12-06] MEDS: LORazepam 2 MG/ML VIAL IM (13:31)
[2024-12-06 14:19] VITALS: BP 102/65; PULSE 72; RESP 18; TEMP 36.9; O2SAT 96
--- NOTE | 2024-12-06 15:47 | PC.CC ---
Patient has been accepted to [facility] by Psychiatrist, Dr. Mccoy into [address]. ASW provided updated d/c plan to [facility] to Dr. Chris, advertising analyst Shirley, and bedside RN Addis. This caption writer informed patient of accepting information and notified her mother, Georgie who was at bedside. SILVINOWCharis to arrange transportation. ASW arranged transportation with [facility] eta p/u [id number].
[2024-12-06 16:21] VITALS: BP 112/65; PULSE 70; RESP 18; TEMP 36.6; O2SAT 98
--- NOTE | 2024-12-06 16:21 | PC.NURSE ---
pt picked up by [facility] for transport to [facility].
== END 2024-12-06 16:21 ==
PROVIDERS: Nurse Practitioner Primary Care; Emergency Provider Emergency Medicine; PCP Nurse Practitioner Family
DX: F20.9 Schizophrenia, unspecified (principal); F15.10 Other stimulant abuse, uncomplicated; F12.90 Cannabis use, unspecified, uncomplicated; L65.9 Nonscarring hair loss, unspecified; T43.596A Underdosing of other antipsychotics and neuroleptics, initial encounter; Z91.128 Patient's intentional underdosing of medication regimen for other reason
CPT/HCPCS: 36415; 80053; 80307; 80320; 81025; 85025; 90839; 96127; 96372; 99285; J2060; Q0162; A9270; G0480

== ENCOUNTER 2024-12-31 01:21 | Emergency (ER) | payer MEDICAID, SELFPAY ==
[2024-12-31 01:23] VITALS: PULSE 98; RESP 20; O2SAT 95; BMI 39.0
--- NOTE | 2024-12-31 01:50 | PD.EDRME ---
Rapid Medical Screening Exam [facility] Arrival date/time: 12/31/24 01:21 Chief Complaint: Psychiatric Symptoms Vital signs: Vital Signs Temperature 97.6 F 12/31/24 01:52 Pulse Rate 99 12/31/24 01:52 Respiratory Rate 19 12/31/24 01:52 Blood Pressure 132/96 H 12/31/24 01:52 Pulse Oximetry (%) 97 12/31/24 01:52 Oxygen Delivery Method Room Air 12/31/24 01:52 [facility] Narrative: Patient having anxiety since 0. Patient was discharged from [facility] yesterday, mother states she's picking up new prescriptions in the morning. Denies SI/HI.
[2024-12-31 01:52] VITALS: BP 132/96; PULSE 99; RESP 19; TEMP 36.4; O2SAT 97
[2024-12-31] MEDS: LORazepam 0.5 MG TABLET 2 MG PO (02:02)
--- NOTE | 2024-12-31 02:34 | EDNOTE_ITS ---
ED Psych RME/HPI General Chief Complaint: Psychiatric Symptoms Stated Complaint: BEHAVIOR Time Seen by Provider: 12/31/24 02:18 Arrival date/time: 12/31/24 01:21 RME / HPI RME / HPI Narrative: Patient having anxiety since 2300. Patient was discharged from [facility] yesterday, mother states she's picking up new prescriptions in the morning. Denies SI/HI. --------- Dr. Montgomery?s Main ED Evaluation: 24yo female with a history of schizoeffective disorder with bipolar features BIBA from home presents to the ED for psychiatric symptoms. Mom states the patient was just discharged from [facility] in [place] yesterday, reporting by the time she got back into town, the pharmacy was already closed for the day. She states the patient has been screaming at her and herself, along with talking to herself. Patient denies any SI or HI. Related Data Home Medications ?Medication ?Instructions ?Recorded ?Confirmed olanzapine 20 mg tablet 25 mg PO QPM 09/15/21 fluoxetine 20 mg capsule (Prozac) 20 mg PO QDAY 12/01/22 Previous Rx's ?Medication ?Instructions ?Recorded docusate sodium 100 mg capsule 100 mg PO BID #40 caps 06/27/21 (Colace) lorazepam 0.5 mg tablet (Ativan) 0.5 mg PO BID PRN anx iety #14 tabs 10/30/24 lorazepam 0.5 mg tablet (Ativan) 0.5 mg PO BID PRN anx iety #10 tabs 12/03/24 Allergies Allergy/AdvReac Type Severity Reaction Status Date / Time No Known Allergies Allergy Verified 12/06/24 08:49 Review of Systems Review of Systems Systems Reviewed: All systems reviewed, normal except as documented Past Medical History Past Medical History NEUROLOGIC: Negative Neurological Disorders or Seizures CARDIAC: Negative Cardiac Disorders, Congestive Heart Failure, Edema, Cellulitis or Varicose Veins RESPIRATORY: Positive Asthma and Bronchitis; Negative Chronic Obstructive Pulmonary Disease (COPD), Pneumonia, Tuberculosis or Sleep Apnea GASTROINTESTINAL: Positive Gastrointestinal Disorders, Gall Bladder Disease, Gastroesophageal Reflux Disease and Obesity; Negative Hepatitis GENITOURINARY: Negative Genitourinary Disorders or Renal Disease REPRODUCTIVE: Negative Pelvic Inflammatory Disease or Previous Pregnancies MUSCULOSKELETAL: Negative Musculoskeletal Disorders ENDOCRINE: Negative Endocrine Disorders, Diabetes Mellitus Type 1 or Diabetes Mellitus Type 2 HEMATOLOGIC: Negative Blood Disorders PSYCHO/SOCIAL: Positive Psychiatric Problems, Schizophrenia, Depression, Anxiety and Behavior Problems OTHER HISTORY: Positive Hospitalization; Negative Autoimmune Disease, Shingles, Falls, Blood Transfusions, Anesthesia Reactions, Chemotherapy, Radiation Therapy, MRSA, Vancomycin-Resistant Enterococci, Human Immunodeficiency Virus (HIV), Chicken Pox, Measles, Mumps, Rubella (Vincentian Measles), Pertussis, Clostridium Difficile or Cancer Family History FAMILY HISTORY: Positive Family Surgery; Negative Family Psychiatric Problems, Family Respiratory Disorders, Family Cardiac Disorders, Family Gastrointestinal Problems, Family Cancer or Family Anesthesia Reaction Surgical History SURGICAL: Positive Abdominal Surgery; Negative Cardiac Surgery, Pacemaker, Endocrine Surgery, Ear Surgery, Nephrectomy, Joint Replacement, Neurologic Surgery or Mastectomy Social History SMOKING STATUS: Never smoker SUBSTANCE USE: does not use ED Exam Narrative Physical exam: GENERAL APPEARANCE: alert and oriented x 4, well-developed, well-nourished, no acute distress VITALS: All vitals were reviewed and the pulse ox is 97% on room air, which is normal according to my interpretation. HEENT: normocephalic, atraumatic NECK: supple LUNGS: no respiratory distress, normal effort HEART: good peripheral perfusion ABDOMEN: non distended EXTREMITIES: atraumatic NEUROLOGIC: awake; alert and oriented x4; cranial nerves II-XII grossly intact PSYCHIATRIC: pressured speech, flight of ideas, tangential thoughts SKIN: warm, dry, normal color; no rashes Course Quality Measures none Orders Category Date Time Status LORazepam [Ativan] Med 12/31/24 01:52 Discontinued 2 mg PO X1 ONE Vital Signs Vital signs: Vital Signs Temperature 97.6 F 12/31/24 01:52 Pulse Rate 99 12/31/24 01:52 Respiratory Rate 19 12/31/24 01:52 Blood Pressure 132/96 H 12/31/24 01:52 Pulse Oximetry (%) 97 12/31/24 01:52 Oxygen Delivery Method Room Air 12/31/24 01:52 Psych MDM Narrative MDM Narrative:: Scribe Attestation: 12/31/24 Stefania Chaparro am scribing for and in the presence of Dr. Montgomery. Patient has a prescription for Geodon 80mg BID awaiting at her pharmacy that she was prescribed from the mental health facility she was just discharged from. Patient is not a danger to herself or others. Will give the patient a dose of Geodon here. Educated the patient's mother to bring the patient back if she has any persisting/worsening symptoms or any other concerns. Mom verbalized understanding. Patient data External records reviewed:: [facility] previous records (Per chart review, patient was seen here on 12/06/24 for acute psychosis and was transferred to [facility].) Clinical information provided by:: patient and parent Social determinants that could affect healthcare access:: mental health Patient has the following chronic illnesses:: schizoeffective disorder with bipolar features How is presenting disease/condition affected by chronic disease/condition?: caused by Evaluation data The following diagnostics were reviewed and interpreted by me:: other (specify) (none) Lab and/or radiology exams considered but not ordered:: none Interpretation Summary: none Medications / Prescriptions Medications or Prescriptions considered but not ordered:: none Medication administrations:: Medication Administration History Discontinued Medications Lorazepam (Lorazepam 0.5 Mg Tablet) 2 mg PO X1 ONE Stop: 12/31/24 01:53 Last Admin: 12/31/24 02:02 Dose: 2 mg Documented By: DOTTY see above Consultations Consultation(s) initiated? (list below): No Diagnosis Psych Differential Diagnosis: acute psychosis, chronic schizophrenia and bipolar disorder Most likely diagnosis given after review of the tests above:: see clinical impression below Admission Indicated Admission indicated?: not indicated Admission Request Was there a request for admission?: No Disposition Plan Disposition Plan: Discharge Discharge Attestation Discharge Attestation: The patient and all family members were given an opportunity to ask questions and understood the discharge instructions. Discharge instructions specifically effects, indications for sooner follow up or return to the emergency department, and the expected course of current diagnosis. Patient condition: Stable Discharge Plan Plan Patient Disposition: HOME (Self Care) Discharge Disposition comment: Stable for discharge in the mom's care Patient condition on transfer: Stable Prescriptions/Referrals Prescriptions/Med Rec: No Action docusate sodium [Colace] 100 mg capsule 100 mg PO BID Qty: 40 0RF olanzapine 20 mg Tablet 25 mg PO QPM lorazepam [Ativan] 0.5 mg tablet 0.5 mg PO BID PRN (Reason: anxiety) Qty: 14 0RF fluoxetine [Prozac] 20 mg Capsule 20 mg PO QDAY lorazepam [Ativan] 0.5 mg tablet 0.5 mg PO BID PRN (Reason: anxiety) Qty: 10 0RF Referrals: [facility] [Provider Group] - In 1 week Problem List Clinical Impression: Acute psychosis Patient/Caregiver Discharge Instructions Discharge Activity: activity as tolerated Education Materials: ED Psychosis Additional Instructions: Please return to the emergency department if Rowena has any worsening or any further medical problems and we will help you. Otherwise you should follow-up with your primary care doctor within the next several days. Please metal pickling equipment operator Rowena prescription at the pharmacy in the morning. You should go ahead and start the first dose tomorrow morning. If you have any further difficulties or Rowena gets worse in any way bring her back to the ER please Print Language: Thai Stand Alone Forms: Pma Award Info., Patient Portal Info Letter
[2024-12-31] MEDS: ZIPRASIDONE 20 MG CAPSULE 80 MG PO (03:27)
[2024-12-31 03:30] VITALS: RESP 18
== END 2024-12-31 03:31 | disposition home or self-care (01) ==
LOC: SERX 03:00
PROVIDERS: Emergency Provider Emergency Medicine; PCP Nurse Practitioner Family
DX: F25.0 Schizoaffective disorder, bipolar type (principal)
CPT/HCPCS: 99282; A9270

== ENCOUNTER 2025-01-01 17:14 | Emergency (ER) | payer MEDICAID, SELFPAY ==
[2025-01-01 17:15] VITALS: BMI 32.1
--- NOTE | 2025-01-01 17:36 | PC.NURSE ---
PT REPORTS I THINK I'M GONNA LEAVE; I'M SLEEPY. THIS RN ATTEMPTED TO PERSUADE PT TO STAY; PER PT, NO, I'M GONNA GO HOME. PT WALKED OUT OF ED LOBBY; PT MOTHER'S DENISE, SIGNED LEAVING HOSPITAL BEFORE MSE FORM FOR PT AT THIS TIME.
== END 2025-01-01 17:40 | disposition left against medical advice (07) ==
LOC: SERX 18:04
PROVIDERS: Emergency Provider Emergency Medicine
DX: Z53.21 Procedure and treatment not carried out due to patient leaving prior to being seen by health care provider (principal)

== ENCOUNTER 2025-01-04 15:43 | Emergency (ER) | payer MEDICAID, SELFPAY ==
--- NOTE | 2025-01-04 15:56 | PD.EDPSYCH ---
ED Psych RME/HPI General Chief Complaint: General Adult/Misc Complain Stated Complaint: ACTING UP NOT TAKING MEDS Time Seen by Provider: 01/04/25 15:54 Arrival date/time: 01/04/25 15:43 RME / HPI RME / HPI Narrative: 24-year-old female patient was brought in by family for acting up. Patient has significant history of schizophrenia, she did not take her medication since yesterday. This morning was noted to be acting up, having bizarre thoughts, and talking nonsense. Patient is aggressive and shouting patient denies any homicidal or suicidal ideation. Patient was brought in by her mom. Related Data Home Medications ?Medication ?Instructions ?Recorded ?Confirmed olanzapine 20 mg tablet 25 mg PO QPM 09/15/21 12/01/22 fluoxetine 20 mg capsule (Prozac) 20 mg PO QDAY 08/21/22 12/01/22 Previous Rx's ?Medication ?Instructions ?Recorded docusate sodium 100 mg capsule 100 mg PO BID #40 caps 06/27/21 (Colace) lorazepam 0.5 mg tablet (Ativan) 0.5 mg PO BID PRN anxiety #14 tabs 10/30/24 lorazepam 0.5 mg tablet (Ativan) 0.5 mg PO BID PRN anxiety #10 tabs 12/03/24 Allergies Allergy/AdvReac Type Severity Reaction Status Date / Time No Known Allergies Allergy Verified 01/01/25 17:19 Review of Systems Review of Systems Narrative Review of Systems: Review of system reviewed and within normal limits except mentioned in HPI ED Exam Narrative Physical exam: VITAL SIGNS: Reviewed. GENERAL APPEARANCE: Alert and anxious, follows simple commands, no acute distress, having bizarre thoughts HEAD AND FACE: Non-traumatic. ENT: PERRL, pink conjunctivitis, eyelid no trauma, Mucous membrane moist. NECK: Supple, nontender, no nuchal rigidity. CHEST: No tenderness, no crepitus, no paradoxical movement, no retractions. LUNGS: Clear, well ventilated, symmetric, no rales, no wheezing, no ronchi, no stridor, good breath sounds bilaterally. HEART: Regular rate, regular rhythm, no murmur, no gallops. ABDOMEN: Soft, positive bowel sounds, nondistended, no guarding, nontender, no rebound, no masses, RECTAL: Deferred. GENITAL: Deferred. NEUROLOGICAL: Gross motor function intact sensory function intact, Appropriate for age. MUSCULOSKELETAL: low back nontender, full range of motion. EXTREMITIES: Nontender, full range of motion. SKIN: Color pink, dry, no rash, no lacerations, no abrasions, no contusions. LYMPHATICS: Deferred. Course Quality Measures none Orders Category Date Time Status Acetaminophen Stat Lab 01/04/25 16:00 Completed Alcohol, Blood Medical Stat Lab 01/04/25 16:00 Completed Basic Metabolic Panel Stat Lab 01/04/25 16:00 Completed CBC Stat Lab 01/04/25 16:00 Completed Drug Screen,Urine Stat Lab 01/04/25 16:10 Completed HCG Qualitative,Urine Stat Lab 01/04/25 16:10 Completed Salicylate Stat Lab 01/04/25 16:00 Completed Urinalysis Stat Lab 01/04/25 16:10 Completed DiphenhydrAMINE INJ [Benadryl Inj] Med 01/04/25 15:54 Discontinued 50 mg IM X1 ONE Haloperidol Lactate [Haldol Inj] Med 01/04/25 15:54 Discontinued 5 mg IM X1 ONE LORazepam [Ativan Inj] Med 01/04/25 15:54 Discontinued 1 mg IM X1 ONE Vital Signs Vital signs: Vital Signs Temperature 98.3 F 01/04/25 15:59 Pulse Rate 91 01/04/25 15:59 Respiratory Rate 18 01/04/25 15:59 Blood Pressure 130/86 H 01/04/25 15:59 Pulse Oximetry (%) 97 01/04/25 15:59 Oxygen Delivery Method Room Air 01/04/25 15:59 Psych MDM Narrative MDM Narrative:: 24-year-old female patient was brought in by family for acting up. Patient has significant history of schizophrenia, she did not take her medication since yesterday. This morning was noted to be acting up, having bizarre thoughts, and talking nonsense. Patient is aggressive and shouting patient denies any homicidal or suicidal ideation. Patient was brought in by her mom. Patient is medically cleared. Patient was accepted and transferred to [facility] Patient data External records reviewed:: None Clinical information provided by:: patient and family Social determinants that could affect healthcare access:: mental health Patient has the following chronic illnesses:: Chronic schizophrenia How is presenting disease/condition affected by chronic disease/condition?: exacerbated by Evaluation data The following diagnostics were reviewed and interpreted by me:: lab results Lab and/or radiology exams considered but not ordered:: None Interpretation Summary: Patient's workup today all came back unremarkable. Medications / Prescriptions Medications or Prescriptions considered but not ordered:: None Medication administrations:: Medication Administration History Discontinued Medications Diphenhydramine HCl (Diphenhydramine Inj 50 Mg/Ml Vial) 50 mg IM X1 ONE Stop: 01/04/25 15:55 Last Admin: 01/04/25 16:19 Dose: 50 mg Documented By: GM Haloperidol Lactate (Haloperidol Lact Inj 5 Mg/Ml Vial) 5 mg IM X1 ONE Stop: 01/04/25 15:55 Last Admin: 01/04/25 16:19 Dose: 5 mg Documented By: GM Lorazepam (Lorazepam 2 Mg/Ml Vial) 1 mg IM X1 ONE Stop: 01/04/25 15:55 Last Admin: 01/04/25 16:19 Dose: 1 mg Documented By: GM Ativan Haldol and Benadryl Consultations Consultation(s) initiated? (list below): No Diagnosis Psych Differential Diagnosis: acute psychosis, chronic schizophrenia and acute anxiety Most likely diagnosis given after review of the tests above:: Acute psychosis, chronic schizophrenia Admission Indicated Admission indicated?: indicated Admission Request Was there a request for admission?: No Disposition Plan Disposition Plan: Transfer Discharge Plan Plan Patient Disposition: [facility] Prescriptions/Referrals Prescriptions/Med Rec: No Action docusate sodium [Colace] 100 mg capsule 100 mg PO BID Qty: 40 0RF olanzapine 20 mg Tablet 25 mg PO QPM lorazepam [Ativan] 0.5 mg tablet 0.5 mg PO BID PRN (Reason: anxiety) Qty: 14 0RF fluoxetine [Prozac] 20 mg Capsule 20 mg PO QDAY lorazepam [Ativan] 0.5 mg tablet 0.5 mg PO BID PRN (Reason: anxiety) Qty: 10 0RF Referrals: Sally Paulson NP [Primary Care Provider] - In 1 week Problem List Clinical Impression: Acute psychosis Patient/Caregiver Discharge Instructions Print Language: Kazakh Stand Alone Forms: Pam Award Info., Patient Portal Info Letter
[2025-01-04 15:57] VITALS: BMI 48.4
[2025-01-04 15:59] VITALS: BP 130/86; PULSE 91; RESP 18; TEMP 36.8; O2SAT 97
[2025-01-04 16:15] LABS: Collection Type, Urine Clean Catch
[2025-01-04 16:19] LABS: Basophils % (Auto) 0 % (0-2.5); Eosinophils % (Auto) 0 % (0-10); Hemoglobin 13.3 g/dL (12.0-16.0); Immature Granulocytes % (Auto) 0 % (0-0); Immature Granulocytes Auto 0.03 Thou/mm3 (0.00-0.00); Lymphocytes # (Auto) 2.7 Thou/mm3 (1.0-4.8); Lymphocytes % (Auto) 26 % (10-50); Mean Corpuscular Hemoglobin 28.9 pg (25.0-35.0); Mean Corpuscular Volume 82 fL (80-100); Monocytes # (Auto) 0.6 Thou/mm3 (0.0-0.8); Monocytes % (Auto) 5 % (0-12); Neutrophils # (Auto) 7.1 Thou/mm3 (1.8-7.7); Neutrophils % (Auto) 68 % (37-80); Nucleated Red Blood Cell % 0 /100 WBC (0); Platelet Count 309 Thou/mm3 (140-440); RDW Standard Deviation 38.1 fL (36.4-46.3); Red Blood Count 4.61 Miln/mm3 (4.00-5.20); White Blood Count 10.4 Thou/mm3 (3.6-11.0)
[2025-01-04] MEDS: DiphenhydrAMINE INJ 50 MG/ML VIAL IM (16:19)
[2025-01-04] MEDS: HALOPERIDOL LACT INJ 5 MG/ML VIAL IM (16:19)
[2025-01-04] MEDS: LORazepam 2 MG/ML VIAL 1 MG IM (16:19)
[2025-01-04 16:32] LABS: Bilirubin,Urine Negative (Negative); Blood,Urine Negative (Negative); Clarity,Urine Clear (Clear/Hazy); Color,Urine Yellow (Lt Yel-Yel); Glucose, Urine Negative (Negative); Ketones,Urine 3+ (Negative); Leukocyte Esterase,Urine Negative (Negative); Nitrite,Urine Negative (Negative); PH,Urine 5.5 (5.0-7.0); Protein,Urine Trace (Neg - Trace); RBC,Urine 2 /hpf (0-3); Specific Gravity,Urine 1.025 (1.001-1.035); Squamous Epithelial Cell,Urine 4 /hpf (0-5); Urobilinogen,Urine Negative mg/dL (0.0-1.0); WBC,Urine 2 /hpf (0-5)
[2025-01-04 16:34] LABS: HCG Qualitative,Urine Negative
[2025-01-04 16:36] LABS: Amphetamine/Methamp Scrn,U Negative (Negative); Barbiturate Screen,Urine Negative (Negative); Benzodiazepines Screen,Urine Negative (Negative); Benzoylecgonine Screen, Ur Negative (Negative); Fentanyl Screen,Urine Negative (Negative); Opiate Screen,Urine Negative (Negative); THC Screen,Urine Negative (Negative)
[2025-01-04 16:55] LABS: Acetaminophen < 2.0 mcg/mL (10.0-20.0); Alcohol, Blood Medical < 10.0 mg/dL (0-10.0); Anion Gap 13 (7-16); BUN/Creatinine Ratio 10 Ratio (12-20); Blood Urea Nitrogen 7 mg/dL (9-23); Calcium 9.2 mg/dL (8.3-10.6); Chloride 104 mMol/L (98-107); Creatinine (Component) 0.7 mg/dL (0.6-1.3); Estimated Creatinine Clearance 107.3 mL/min (>60); Glucose 101 mg/dL (74-106); Osmolality,Calculated 279 (275-295); Potassium 3.6 mMol/L (3.4-5.1); Salicylate < 3.0 mg/dL; Sodium 141 mMol/L (136-145); eGFR > 60 See Note
[2025-01-04 17:15] VITALS: BP 107/71; PULSE 82; RESP 16; TEMP 36.8; O2SAT 97
--- NOTE | 2025-01-04 17:26 | PC.CC ---
Patient is a 24 year-old female who [facility] do to bizarre and delusional behavior as she stopped taking her medication two days ago. Chioma met with patient [id number] to complete assessment. ASW introduced self, role, and reason for assessment. ASW disclosed limits of confidentiality as well. Patient appeared alert and oriented to self and place. Patient presented as unkempt, dishelved, with a blanket covering her head just showing her face. Patient?s thought process was not linear and organized. Patient had poor insight and judgement. Patient made delusional bizarre statements. Patient asked this marketing copywriter if she was Juma. Patient stated, ?I was talking to him last night and he is stressed out and he was washing his clothes but I was asleep.? At the time of encounter patient denied visual hallucinations, suicidal and homicidal ideations, but stated he is talking to her but not right now. Patient was low-risk on the [place] Screening. Patient stopped engaging with this marketing copywriter; however, provided verbal consent to make contact with her mother, Georgie Pickard . ASW made telephone contact with patient?s mother who reports the patient was at [facility] from 12/06/2024-12/30/2024. She reports the patient has been manic since her release such as hyper, crying, mad, and anxious. Patient has a mental health diagnosis of Schizoaffective-Bipolar Type. Patient had a follow up appointment with her Psychiatrist, Dr. Goldberg at [facility] yesterday. She is prescribed Geodon 80mg/2 day, Depakote 1000mg 1/day, and Banophen 25mg 1/day. Patient reports that patient took 5 showers in one day but did not change her clothes since getting out on Wednesday. Patient?s mother reports today she took a shower and did not put no underclothes on. Patient?s mother reports the patient had not slept since Wednesday but slept last night after being prescribed Banophen 25mg. Mother reports patient has been having delusions speaking and not making sense. Upon clinical consultation with [facility], Arpita Fletcher patient will be placed on a 5150-hold for [facility] Disabled. ASW provided advisement to the patient. This marketing copywriter called mother, Georgie to provide information that patient was being placed on a 5150-hold. ASW provided update of 5150-hold to Dr. Burciaga, director security management Janee, and bedside RN Hammad. ASW to send referral via [facility] to [facility].
[2025-01-04 18:08] VITALS: BP 120/77; PULSE 88; RESP 16; TEMP 36.9; O2SAT 98
--- NOTE | 2025-01-04 18:51 | PC.NURSE ---
Received call from Jensen at [facility]. Patient being accepted and assigned to [place] [facility] under care of Dr. Huber. Nurse to Nurse call number [phone] (or for any other updated information to include transport time). ER provider and social economist informed / updated and transport being set up. Mother informed of patient acceptance to [facility].
--- NOTE | 2025-01-04 18:51 | PC.CC ---
Patient was accepted to [facility] , Unit [place], Dr. Huber is accepting. [facility] Requested a [place] that was faxed to them. ASW provided accepting information to mother, Georgie and patient; however, patient was non-responsive as she was asleep. ASW to arrange transportation with [facility].
== END 2025-01-04 21:04 ==
PROVIDERS: Nurse Practitioner Family; Emergency Provider Family Medicine; PCP Nurse Practitioner Family
DX: F20.9 Schizophrenia, unspecified (principal); Z75.1 Person awaiting admission to adequate facility elsewhere
CPT/HCPCS: 36415; 80048; 80307; 80320; 80329; 81001; 81025; 85025; 90839; 96127; 96372; 99285; J1200; J1630; J2060; G0480

== ENCOUNTER 2025-02-14 10:32 | Emergency (ER) | payer MEDICAID, SELFPAY ==
[2025-02-14 10:33] VITALS: BMI 34.0
[2025-02-14 10:39] VITALS: BP 110/72; PULSE 110; RESP 18; TEMP 37.1; O2SAT 95
--- NOTE | 2025-02-14 10:51 | EDNOTE_ITS ---
<Statement entered by Ashley Walton MD - 02/23/25 19:27> As co-signing physician, I was present and available for consult prn. I concur with the plan and care as documented by the midlevel provider. ED Anxiety RME/HPI General Chief Complaint: General Adult/Misc Complain Stated Complaint: NEEDS MEDS FOR SCHIZOPHRENIA; APPT TOMORROW Source: patient and family Arrival date/time: 02/14/25 10:32 24-year-old female with a history of schizophrenia, acute anxiety presents to the emergency room with mother with a chief complaint of anxiety and unable to sleep x 1 day. Mode of arrival: ambulatory Limitations: no limitations Related Data Home Medications ?Medication ?Instructions ?Recorded ?Confirmed olanzapine 20 mg tablet 25 mg PO QPM 09/15/21 fluoxetine 20 mg capsule (Prozac) 20 mg PO QDAY 12/01/22 Previous Rx's ?Medication ?Instructions ?Recorded docusate sodium 100 mg capsule 100 mg PO BID #40 caps 06/27/21 (Colace) lorazepam 0.5 mg tablet (Ativan) 0.5 mg PO BID PRN anx iety #14 tabs 10/30/24 lorazepam 0.5 mg tablet (Ativan) 0.5 mg PO BID PRN anx iety #10 tabs 12/03/24 Allergies Allergy/AdvReac Type Severity Reaction Status Date / Time No Known Allergies Allergy Verified 02/14/25 10:35 Review of Systems Review of Systems Systems Reviewed: All systems reviewed, normal except as documented Constitutional Constitutional: Reports system reviewed and no additional complaints, except as documented, Denies fatigue, Denies fever(s), Denies headache(s) and Denies weakness Eyes Eyes: Reports system reviewed and no additional complaints, except as documented, Denies blurry vision and Denies change in vision ENT Ears, Nose, Mouth, and Throat: Reports system reviewed and no additional complaints, except as documented, Denies otalgia, Denies headache(s), Denies nasal congestion, Denies throat swelling and Denies vertigo Cardiovascular Cardiovascular: Reports system reviewed and no additional complaints, except as documented, Denies chest pain, Denies dyspnea and Denies dyspnea on exertion Respiratory Respiratory: Reports system reviewed and no additional complaints, except as documented, Denies chest congestion, Denies cough, Denies dyspnea, Denies dyspnea on exertion and Denies wheezing Gastrointestinal Gastrointestinal: Reports system reviewed and no additional complaints, except as documented, Denies abdominal pain, Denies cramping, Denies nausea and Denies vomiting Genitourinary Genitourinary: Reports system reviewed and no additional complaints, except as documented Musculoskeletal Musculoskeletal: Reports system reviewed and no additional complaints, except as documented and Denies back pain Integumentary/Breasts Skin/Breast: Reports system reviewed and no additional complaints, except as documented and Denies wounds Neurologic Neurologic: Reports system reviewed and no additional complaints, except as documented, Denies confusion, Denies headache(s), Denies lack of coordination, Denies vertigo and Denies weakness Psychiatric Psychiatric: Reports system reviewed and no additional complaints, except as documented, Reports anxiety, Denies confusion, Denies depression, Denies paranoia, Denies suicidal ideation and Denies tactile hallucinations Endocrine Endocrine: Reports system reviewed and no additional complaints, except as documented and Denies fatigue Hematologic/Lymphatic Hematologic/Lymphatic: Reports system reviewed and no additional complaints, except as documented and Denies lymphadenopathy Allergic/Immunologic Allergic/Immunologic: Reports system reviewed and no additional complaints, except as documented, Denies throat swelling, Denies urticaria and Denies wheezing Past Medical History Past Medical History NEUROLOGIC: Negative Neurological Disorders or Seizures CARDIAC: Negative Cardiac Disorders, Congestive Heart Failure, Edema, Cellulitis or Varicose Veins RESPIRATORY: Positive Asthma and Bronchitis; Negative Chronic Obstructive Pulmonary Disease (COPD), Pneumonia, Tuberculosis or Sleep Apnea GASTROINTESTINAL: Positive Gastrointestinal Disorders, Gall Bladder Disease, Gastroesophageal Reflux Disease and Obesity; Negative Hepatitis GENITOURINARY: Negative Genitourinary Disorders or Renal Disease REPRODUCTIVE: Negative Pelvic Inflammatory Disease or Previous Pregnancies MUSCULOSKELETAL: Negative Musculoskeletal Disorders ENDOCRINE: Negative Endocrine Disorders, Diabetes Mellitus Type 1 or Diabetes Mellitus Type 2 HEMATOLOGIC: Negative Blood Disorders PSYCHO/SOCIAL: Positive Psychiatric Problems, Schizophrenia, Depression, Anxiety and Behavior Problems OTHER HISTORY: Positive Hospitalization; Negative Autoimmune Disease, Shingles, Falls, Blood Transfusions, Anesthesia Reactions, Chemotherapy, Radiation Therapy, MRSA, Vancomycin-Resistant Enterococci, Human Immunodeficiency Virus (HIV), Chicken Pox, Measles, Mumps, Rubella (Uzbek Measles), Pertussis, Clostridium Difficile or Cancer Family History FAMILY HISTORY: Positive Family Surgery; Negative Family Psychiatric Problems, Family Respiratory Disorders, Family Cardiac Disorders, Family Gastrointestinal Problems, Family Cancer or Family Anesthesia Reaction Surgical History SURGICAL: Positive Abdominal Surgery; Negative Cardiac Surgery, Pacemaker, Endocrine Surgery, Ear Surgery, Nephrectomy, Joint Replacement, Neurologic Surgery or Mastectomy Social History SMOKING STATUS: Never smoker SUBSTANCE USE: does not use ED Exam General Limitations: Present no limitations General appearance: Present alert and in no apparent distress Head Head exam: Present atraumatic Eye Eye exam: Present normal appearance, PERRL and EOMI ENT ENT exam: Present normal exam, normal oropharynx and mucous membranes moist Neck Neck exam: Present normal inspection, full ROM and trachea midline Chest Chest inspection: Present normal inspection and symmetric chest wall rise Respiratory Respiratory exam: Present normal lung sounds bilaterally Cardiovascular Cardiovascular exam: Present regular rate, normal rhythm and normal heart sounds Abdominal Exam Abdominal exam: Present soft and normal bowel sounds Extremities Exam Extremities exam: Present normal inspection and full ROM Back Exam Back exam: Present normal inspection and full ROM Neurological Exam Neurological exam: Present alert, oriented X3 and CN II-XII intact Psychiatric Psychiatric exam: Present normal affect, normal mood and anxious; Absent homicidal ideation or suicidal ideation Expanded Psychiatric Exam Expanded psych exam: Present restlessness and auditory hallucinations Skin Skin exam: Present warm, dry, intact and normal color Course Quality Measures none Orders Category Date Time Status ALPRazoLAM [Xanax] Med 02/14/25 10:46 Discontinued 0.5 mg PO X1 ONE Vital Signs Vital signs: Vital Signs Temperature 98.7 F 02/14/25 10:39 Pulse Rate 110 H 02/14/25 10:39 Respiratory Rate 18 02/14/25 10:39 Blood Pressure 110/72 02/14/25 10:39 Pulse Oximetry (%) 95 02/14/25 10:39 Oxygen Delivery Method Room Air 02/14/25 10:39 Anxiety MDM Narrative MDM Narrative: 24-year-old female with a history of schizophrenia, acute anxiety presents to the emergency room with mother with a chief complaint of anxiety and unable to sleep x 1 day. Patient is hemodynamically stable and in no apparent distress Physical examination shows this patient with acute anxiety. The patient is also having some auditory hallucinations but according to mother due to her schizophrenia she is always having auditory and visual hallucinations. Mother states that she brought her to the emergency room for medication for an anxiety and to help her sleep. Mother states they have a mental health appointment with her psychiatrist tomorrow morning. The patient denies any suicidal or homicidal ideation the mother states she is with her at all times and takes care of her. Anxiety medication was given to the patient with significant improvement to her symptoms Patient was discharged and educated to follow-up with primary care provider in the next 24 to 48 hours and return to the emergency room for any evidence of worsening signs or symptoms Patient data External records reviewed:: [facility] previous records Clinical information provided by:: parent Social determinants that could affect healthcare access:: none Patient has the following chronic illnesses:: Schizophrenia How is presenting disease/condition affected by chronic disease/condition?: caused by Evaluation data The following diagnostics were reviewed and interpreted by me:: lab results and radiology exam(s) Lab and/or radiology exams considered but not ordered:: Labs and radiology exams considered in order Interpretation Summary: N/A Medications / Prescriptions Medications or Prescriptions considered but not ordered:: Medication given Medication administrations:: Medication Administration History Discontinued Medications Alprazolam (Alprazolam 0.25 Mg Tablet) 0.5 mg PO X1 ONE Stop: 02/14/25 10:47 Consultations Consultation(s) initiated? (list below): No Diagnosis Differential diagnosis anxiety: panic disorder and acute anxiety Most likely diagnosis given after review of the tests above:: Acute anxiety Admission Indicated Admission indicated?: not indicated Admission Request Was there a request for admission?: No Disposition Plan Disposition Plan: Discharge Discharge Attestation Discharge Attestation: The patient and all family members were given an opportunity to ask questions and understood the discharge instructions. Discharge instructions specifically effects, indications for sooner follow up or return to the emergency department, and the expected course of current diagnosis. Patient condition: Stable Discharge Plan Plan Patient Disposition: HOME (Self Care) Discharge Disposition comment: Stable Prescriptions/Referrals Prescriptions/Med Rec: No Action docusate sodium [Colace] 100 mg capsule 100 mg PO BID Qty: 40 0RF olanzapine 20 mg Tablet 25 mg PO QPM lorazepam [Ativan] 0.5 mg tablet 0.5 mg PO BID PRN (Reason: anxiety) Qty: 14 0RF fluoxetine [Prozac] 20 mg Capsule 20 mg PO QDAY lorazepam [Ativan] 0.5 mg tablet 0.5 mg PO BID PRN (Reason: anxiety) Qty: 10 0RF Problem List Clinical Impression: Acute anxiety Patient/Caregiver Discharge Instructions Education Materials: ED Anxiety Reaction Additional Instructions: Please follow-up with your primary care provider in the next 24 to 48 hours Please keep your appointment with your psychiatrist aundreaorrow. For any evidence of worsening signs or symptoms return to the emergency room immediately Print Language: Moldovan Stand Alone Forms: Pam Award Info., Work/School Release, Patient Portal Info Letter PA/PAUL Supervising Physician KINGSLEY/PAUL Supervising Physician: Dr. Angel
== END 2025-02-14 11:18 | disposition home or self-care (01) ==
LOC: SERX 11:01
PROVIDERS: Emergency Provider Emergency Medicine
DX: F41.9 Anxiety disorder, unspecified (principal)
CPT/HCPCS: 99282; A9270

== ENCOUNTER 2025-02-28 23:54 | Emergency (ER) | payer MEDICAID, SELFPAY ==
[2025-02-28 23:59] VITALS: BP 110/73; PULSE 99; RESP 18; TEMP 36.6; O2SAT 97; BMI 29.1
--- NOTE | 2025-03-01 00:08 | PD.EDPSYCH ---
ED Psych RME/HPI General Chief Complaint: Psychiatric Symptoms Stated Complaint: MENTAL EVALUATION Time Seen by Provider: 03/01/25 00:12 Arrival date/time: 02/28/25 23:54 RME / HPI RME / HPI Narrative: This section includes all my notes and documentations, including HPI, PE, and ED course. Iain Mcbride MD HPI: 24yo female with a history of schizophrenia BIBA from home here on a 5150 hold for psychiatric evaluation. Per EMS, they were called due to the patient running out of the house and punching herself in the face. Patient reports this isn't true. She reports her mom would only give her Benadryl every few hours so she couldn't sleep well. When asked about thoughts of hurting herself or others, she doesn't answer. When asked about hallucinations, she doesn't answer. No other complaints. ROS: Unobtainable due to the patient not answering questions. Physical Exam: General: Alert and oriented. Flat affect noted. Eyes: Conjunctivae and lids clear. ENT: No nasal congestion. Neck: Supple. Heart: RRR. Lungs: No respiratory distress. Good air movement. No rhonchi, wheezing, rales. Abdomen: Soft and nontender. Skin: Warm and dry. Neuro: Alert and oriented X 3. I reviewed EMS notes. I reviewed all diagnostic test results. Blood tests unremarkable. Waiting for urine specimen. At this point, diagnoses include acute psychosis. Treatment here included Benadryl and melatonin to help her sleep. Entered order for evaluation by our ED resident caregiver. At 6 AM on 03/01/2020 the care of the patient was transferred to Dr. Burciaga. Iain Mcbride MD Related Data Home Medications ?Medication ?Instructions ?Recorded ?Confirmed olanzapine 20 mg tablet 25 mg PO QPM 09/15/21 12/01/22 fluoxetine 20 mg capsule (Prozac) 20 mg PO QDAY 08/21/22 12/01/22 Previous Rx's ?Medication ?Instructions ?Recorded docusate sodium 100 mg capsule 100 mg PO BID #40 caps 06/27/21 (Colace) lorazepam 0.5 mg tablet (Ativan) 0.5 mg PO BID PRN anxiety #14 tabs 10/30/24 lorazepam 0.5 mg tablet (Ativan) 0.5 mg PO BID PRN anxiety #10 tabs 12/03/24 Allergies Allergy/AdvReac Type Severity Reaction Status Date / Time No Known Allergies Allergy Verified 02/14/25 10:35 Review of Systems Review of Systems ROS Unobtainable: other (unobtainable due to the patient not answering questions) Past Medical History Past Medical History NEUROLOGIC: Negative Neurological Disorders or Seizures CARDIAC: Negative Cardiac Disorders, Congestive Heart Failure, Edema, Cellulitis or Varicose Veins RESPIRATORY: Positive Asthma and Bronchitis; Negative Chronic Obstructive Pulmonary Disease (COPD), Pneumonia, Tuberculosis or Sleep Apnea GASTROINTESTINAL: Positive Gastrointestinal Disorders, Gall Bladder Disease, Gastroesophageal Reflux Disease and Obesity; Negative Hepatitis GENITOURINARY: Negative Genitourinary Disorders or Renal Disease REPRODUCTIVE: Negative Pelvic Inflammatory Disease or Previous Pregnancies MUSCULOSKELETAL: Negative Musculoskeletal Disorders ENDOCRINE: Negative Endocrine Disorders, Diabetes Mellitus Type 1 or Diabetes Mellitus Type 2 HEMATOLOGIC: Negative Blood Disorders PSYCHO/SOCIAL: Positive Psychiatric Problems, Schizophrenia, Depression, Anxiety and Behavior Problems OTHER HISTORY: Positive Hospitalization; Negative Autoimmune Disease, Shingles, Falls, Blood Transfusions, Anesthesia Reactions, Chemotherapy, Radiation Therapy, MRSA, Vancomycin-Resistant Enterococci, Human Immunodeficiency Virus (HIV), Chicken Pox, Measles, Mumps, Rubella ([place] Measles), Pertussis, Clostridium Difficile or Cancer Family History FAMILY HISTORY: Positive Family Surgery; Negative Family Psychiatric Problems, Family Respiratory Disorders, Family Cardiac Disorders, Family Gastrointestinal Problems, Family Cancer or Family Anesthesia Reaction Surgical History SURGICAL: Positive Abdominal Surgery; Negative Cardiac Surgery, Pacemaker, Endocrine Surgery, Ear Surgery, Nephrectomy, Joint Replacement, Neurologic Surgery or Mastectomy Social History SMOKING STATUS: Never smoker SUBSTANCE USE: does not use ED Exam Narrative Physical exam: As noted in HPI. Course Quality Measures none Orders Category Date Time Status Referral Physical Therapy Stat Cons 03/01/25 03:48 Active Referral Psych Eval Stat Cons 03/01/25 03:48 Active Acetaminophen Stat Lab 03/01/25 01:18 Completed Alcohol, Blood Medical Stat Lab 03/01/25 01:18 Completed Amylase Stat Lab 03/01/25 01:18 Completed Bilirubin,Direct Stat Lab 03/01/25 01:18 Completed CBC Stat Lab 03/01/25 01:18 Completed CMP [Comprehensive Metabolic Panel] Stat Lab 03/01/25 01:18 Completed Drug Screen,Urine Stat Lab 03/01/25 00:11 Ordered Free T4 (Free Thyroxine) Stat Lab 03/01/25 01:18 Completed HCG,Qualitative Serum Stat Lab 03/01/25 01:18 Completed Lipase Stat Lab 03/01/25 01:18 Completed Magnesium Stat Lab 03/01/25 01:18 Completed Salicylate Stat Lab 03/01/25 01:18 Completed TSH [Thyroid Stimulating Hormone] Stat Lab 03/01/25 01:18 Completed UA, C/S IF [Urinalysis, C/S if Indicated] Stat Lab 03/01/25 00:11 Ordered DiphenhydrAMINE [Benadryl] Med 03/01/25 01:21 Discontinued 50 mg PO X1 ONE Melatonin Med 03/01/25 01:22 Discontinued 9 mg PO X1 ONE Vital Signs Vital signs: Vital Signs Temperature 98 F 02/28/25 23:59 Pulse Rate 99 02/28/25 23:59 Respiratory Rate 18 02/28/25 23:59 Blood Pressure 110/73 02/28/25 23:59 Pulse Oximetry (%) 97 02/28/25 23:59 Oxygen Delivery Method Room Air 02/28/25 23:59 Psych MDM Narrative MDM Narrative:: 24yo female with a history of schizophrenia BIBA from home here on a 5150 hold for psychiatric evaluation. Per EMS, they were called due to the patient running out of the house and punching herself in the face. Patient reports this isn't true. She reports her mom would only give her Benadryl every few hours so she couldn't sleep well. When asked about thoughts of hurting herself or others, she doesn't answer. When asked about hallucinations, she doesn't answer. No other complaints. Patient data External records reviewed:: [facility] previous records (Per chart review, patient was seen here on 02/14/25 for anxiety.) Clinical information provided by:: patient Social determinants that could affect healthcare access:: mental health Patient has the following chronic illnesses:: schizophrenia How is presenting disease/condition affected by chronic disease/condition?: caused by Evaluation data The following diagnostics were reviewed and interpreted by me:: lab results Lab and/or radiology exams considered but not ordered:: none Interpretation Summary: I reviewed all diagnostic test results. Blood tests unremarkable. Waiting for urine specimen. Medications / Prescriptions Medications or Prescriptions considered but not ordered:: None Medication administrations:: Medication Administration History Discontinued Medications Diphenhydramine HCl (Diphenhydramine 25 Mg Capsule) 50 mg PO X1 ONE Stop: 03/01/25 01:22 Last Admin: 03/01/25 02:14 Dose: Not Given Documented By: DIANA Non-Admin Reason: Override Medication Melatonin (Melatonin 3 Mg Tablet) 9 mg PO X1 ONE Stop: 03/01/25 01:23 Last Admin: 03/01/25 02:14 Dose: 9 mg Documented By: DIANA Treatment here included Benadryl and melatonin to help her sleep. Consultations Consultation(s) initiated? (list below): No Diagnosis Psych Differential Diagnosis: acute psychosis, chronic schizophrenia, suicidal ideation, bipolar disorder, depression, drug-induced psychotic disorder and acute anxiety Most likely diagnosis given after review of the tests above:: Acute psychosis Admission Indicated Admission indicated?: not indicated Explain why admission is indicated or not indicated:: No psychiatric service available here. Admission Request Was there a request for admission?: No Disposition Plan Disposition Plan: other (specify) (At 6 AM on 03/01/2020 the care of the patient was transferred to Dr. Burciaga. ) Discharge Plan Prescriptions/Referrals Prescriptions/Med Rec: No Action docusate sodium [Colace] 100 mg capsule 100 mg PO BID Qty: 40 0RF olanzapine 20 mg Tablet 25 mg PO QPM lorazepam [Ativan] 0.5 mg tablet 0.5 mg PO BID PRN (Reason: anxiety) Qty: 14 0RF fluoxetine [Prozac] 20 mg Capsule 20 mg PO QDAY lorazepam [Ativan] 0.5 mg tablet 0.5 mg PO BID PRN (Reason: anxiety) Qty: 10 0RF Referrals: Sally Paulson SAP DEVELOPER [Primary Care Provider] - In 1 week Problem List Clinical Impression: Acute psychosis Patient/Caregiver Discharge Instructions Print Language: Ukrainian
[2025-03-01 00:22] VITALS: PULSE 91; RESP 18; O2SAT 98
[2025-03-01 01:32] LABS: Basophils # (Auto) 0.0 Thou/mm3 (0.0-0.2); Basophils % (Auto) 0 % (0-2.5); Eosinophils # (Auto) 0.0 Thou/mm3 (0.0-0.5); Eosinophils % (Auto) 0 % (0-10); Hematocrit 38.1 % (36.0-46.0); Hemoglobin 13.1 g/dL (12.0-16.0); Immature Granulocytes Auto 0.02 Thou/mm3 (0.00-0.00); Lymphocytes # (Auto) 1.8 Thou/mm3 (1.0-4.8); Lymphocytes % (Auto) 20 % (10-50); Mean Corpuscular HGB Conc 34.4 g/dl (31.0-37.0); Mean Corpuscular Hemoglobin 28.9 pg (25.0-35.0); Mean Corpuscular Volume 84 fL (80-100); Monocytes # (Auto) 0.5 Thou/mm3 (0.0-0.8); Monocytes % (Auto) 6 % (0-12); Neutrophils # (Auto) 6.6 Thou/mm3 (1.8-7.7); Neutrophils % (Auto) 73 % (37-80); Nucleated Red Blood Cell # 0.00 Thou/mm3 (0.00-0.00); Nucleated Red Blood Cell % 0 /100 WBC (0); Platelet Count 283 Thou/mm3 (140-440); RDW Standard Deviation 39.8 fL (36.4-46.3); Red Blood Count 4.54 Miln/mm3 (4.00-5.20); White Blood Count 9.0 Thou/mm3 (3.6-11.0)
[2025-03-01 01:54] LABS: HCG,Qualitative Serum Negative
[2025-03-01 01:57] LABS: Acetaminophen < 2.0 mcg/mL (10.0-20.0); Alanine Aminotransferase 12 U/L (10-49); Albumin, Serum 4.6 gm/dL (3.5-5.0); Albumin/Globulin Ratio 1.5 (1.2-2.2); Alcohol, Blood Medical < 10.0 mg/dL (0-10.0); Alkaline Phosphatase 79 U/L (46-116); Amylase 87 U/L (30-118); Anion Gap 12 (7-16); Aspartate Amino Transferase 14 U/L (0-34); BUN/Creatinine Ratio 20 Ratio (12-20); Bilirubin,Direct 0.1 mg/dL (0.0-0.3); Bilirubin,Total 0.4 mg/dL (0.3-1.2); Blood Urea Nitrogen 12 mg/dL (9-23); Calcium 9.3 mg/dL (8.3-10.6); Calcium (Corrected) 9.3 mg/dL (8.5-10.1); Carbon Dioxide 24.3 mMol/L (20.0-31.0); Chloride 107 mMol/L (98-107); Creatinine (Component) 0.6 mg/dL (0.6-1.3); Estimated Creatinine Clearance 151.8 mL/min (>60); Free T4 (Free Thyroxine) 1.24 ng/dL (0.89-1.76); Globulin 3.0 gm/dL (2.3-3.5); Glucose 114 mg/dL (74-106); Lipase 31 U/L (12-53); Magnesium 1.7 mg/dL (1.6-2.6); Osmolality,Calculated 285 (275-295); Potassium 3.6 mMol/L (3.4-5.1); Salicylate < 3.0 mg/dL; Sodium 143 mMol/L (136-145); Thyroid Stimulating Hormone 2.49 uIU/mL (0.55-4.78); Total Protein 7.6 gm/dL (5.7-8.2); eGFR > 60 See Note
[2025-03-01] MEDS: MELATONIN 3 MG TABLET 9 MG PO (02:14)
--- NOTE | 2025-03-01 02:14 | PC.NURSE ---
ATTEMPTED TO GIVE PT BENADRYL MEDICATIONS AND PT SPIT OUT MEDICATION STATING I CANT TAKE THIS, I WANNA THROW UP . ATTEMPT TO GIVE MEDICATION AGAIN AND PT REFUSED.
--- NOTE | 2025-03-01 06:24 | PD.EDADDENDU ---
Emergency Room Addendum Addendum Narrative: 0600: Care assumed from Dr. Mcbride, the previous shift emergency physician. Past medical, surgical, social and family history reviewed. Vitals and home medications reviewed. I will assume the care of the patient at this time, pending mental health evaluation. Patient is medically cleared for psychiatric evaluation. Please refer to the emergency department record for history and examination from initial visit.? The patient was placed in ED observation care at 03/01/2025 at 0600 hours. The patient was placed in ED observation care pending mental health evaluation. The patients past medical history, social history, and family history were reviewed. The plan of care will include serial examinations. While in ED observation the patient will have access to water, food, and personal hygiene. If the patient takes home medication(s), they will be continued in ED observation. Physical exam by me shows patient under no acute distress at this time. 0845: Mental health cleared the patient/ rescinded the psychiatric hold. Safety plan in place. 0850: Patient discharged. ED observation care ended at 03/01/2025 at 0850 hours. Diagnoses: -Acute psychosis -Schizophrenia
[2025-03-01 07:01] VITALS: BP 121/79; PULSE 87; RESP 17; TEMP 36.8; O2SAT 96
[2025-03-01 07:39] LABS: Collection Type, Urine Clean Catch
[2025-03-01 07:48] LABS: Bilirubin,Urine Negative (Negative); Blood,Urine 3+ (Negative); Color,Urine Yellow (Lt Yel-Yel); Culture Indicated,Urine Not Indicated; Glucose, Urine Negative (Negative); Ketones,Urine 3+ (Negative); Leukocyte Esterase,Urine Positive (Negative); Nitrite,Urine Negative (Negative); PH,Urine 6.0 (5.0-7.0); Protein,Urine 1+ (Neg - Trace); RBC,Urine 5 /hpf (0-3); Specific Gravity,Urine 1.040 (1.001-1.035); Squamous Epithelial Cell,Urine 18 /hpf (0-5); Urobilinogen,Urine 2.0 mg/dL (0.0-1.0); WBC,Urine 5 /hpf (0-5)
[2025-03-01 07:51] LABS: Clarity,Urine Hazy (Clear/Hazy)
[2025-03-01 07:52] LABS: Amphetamine/Methamp Scrn,U Negative (Negative); Barbiturate Screen,Urine Negative (Negative); Benzodiazepines Screen,Urine Negative (Negative); Benzoylecgonine Screen, Ur Negative (Negative); Fentanyl Screen,Urine Negative (Negative); Opiate Screen,Urine Negative (Negative); THC Screen,Urine Negative (Negative)
--- NOTE | 2025-03-01 08:44 | PC.PT ---
Per RN, patient is xI with ambulation up in the room and to the bathroom. Will cancel PT eval at this time.
--- NOTE | 2025-03-01 08:53 | PC.CC ---
Patient is a 24 year-old female who presents to the hospital for mental health evaluation due to experiencing psychical symptoms. AMFT made face to face contact with the patient introduced self?s, role, and reason for visit. Patient presents as unkempt and dishelved. [facility] received consent to from Pt for mother Georgie Pickard [phone] to remain in room. Patient scored low-risk on [place] Suicide Screening. [facility] completed a chart review it was noted on previous visits that patient has a mental health diagnosis of Schizophrenia. Patient is followed by outpatient mental health services [facility], Psychiatrist, . Pt and mother reported Pt recently has had a change in treatment team and medication (side effects of medication may cause sensation that pt describes are tingling .) Per mother medication side effect may cause arousal sensation. Upon clinical consultation with Arpita MARTINEZ the patient will be able to safety plan with Pt and mother. Pt is now connected to [facility] and had appointment set foe 03/07/2025 and will be seeing her primary doctor 03/22/2025. ASW provided update on discharge plan to safety plan to Dr. Burciaga, process engineering manager Shirley, and bedside RN.
[2025-03-01 08:59] VITALS: BP 126/81; PULSE 81; RESP 16; TEMP 36.8; O2SAT 96
== END 2025-03-01 09:08 | disposition home or self-care (01) ==
PROVIDERS: Emergency Medicine; Emergency Provider Family Medicine; PCP Nurse Practitioner Family
DX: F20.9 Schizophrenia, unspecified (principal)
CPT/HCPCS: 36415; 80053; 80307; 80320; 80329; 81001; 82150; 82248; 83690; 83735; 84439; 84443; 84703; 85025; 96127; A9270; G0480

== ENCOUNTER 2025-03-01 19:06 | Emergency (ER) | payer MEDICAID, SELFPAY ==
--- NOTE | 2025-03-01 19:14 | PD.EDPSYCH ---
ED Psych RME/HPI General Chief Complaint: Psychiatric Symptoms Stated Complaint: VOLUNTARY HOLD Time Seen by Provider: 03/01/25 19:09 Arrival date/time: 03/01/25 19:06 RME / HPI RME / HPI Narrative: 24-year-old female patient with significant history of schizophrenia, was brought in by law enforcement for voluntary hold. Patient apparently was seen here yesterday for worsening psychosis, and was cleared to discharge home. According to the law enforcement family called them because the patient has been having hallucinations and got scared and becoming psychotic. On my initial evaluation patient was noted to be verbalizing having scary auditory hallucination. Patient is denying any homicidal or suicidal ideation. Patient told me that she is taking her psych medication with good compliance. Related Data Home Medications ?Medication ?Instructions ?Recorded ?Confirmed olanzapine 20 mg tablet 25 mg PO QPM 09/15/21 12/01/22 fluoxetine 20 mg capsule (Prozac) 20 mg PO QDAY 08/21/22 12/01/22 Previous Rx's ?Medication ?Instructions ?Recorded docusate sodium 100 mg capsule 100 mg PO BID #40 caps 06/27/21 (Colace) lorazepam 0.5 mg tablet (Ativan) 0.5 mg PO BID PRN anxiety #14 tabs 10/30/24 lorazepam 0.5 mg tablet (Ativan) 0.5 mg PO BID PRN anxiety #10 tabs 12/03/24 Allergies Allergy/AdvReac Type Severity Reaction Status Date / Time No Known Allergies Allergy Verified 02/14/25 10:35 Review of Systems Review of Systems Narrative Review of Systems: Review of system reviewed and within normal limits except mentioned in HPI ED Exam Narrative Physical exam: VITAL SIGNS: Reviewed. GENERAL APPEARANCE: Alert and interactive, follows commands, no acute distress, anxious HEAD AND FACE: Non-traumatic. ENT: PERRL, pink conjunctivitis, eyelid no trauma, Mucous membrane moist. NECK: Supple, nontender, no nuchal rigidity. CHEST: No tenderness, no crepitus, no paradoxical movement, no retractions. LUNGS: Clear, well ventilated, symmetric, no rales, no wheezing, no ronchi, no stridor, good breath sounds bilaterally. HEART: Regular rate, regular rhythm, no murmur, no gallops. ABDOMEN: Soft, positive bowel sounds, nondistended, no guarding, nontender, no rebound, no masses, RECTAL: Deferred. GENITAL: Deferred. NEUROLOGICAL: Gross motor function intact sensory function intact, Appropriate for age. MUSCULOSKELETAL: low back nontender, full range of motion. EXTREMITIES: Nontender, full range of motion. SKIN: Color pink, dry, no rash, no lacerations, no abrasions, no contusions. LYMPHATICS: Deferred. Course Quality Measures none Orders Category Date Time Status BMP [Basic Metabolic Panel] Stat Lab 03/01/25 19:43 Completed CBC [CBC] Stat Lab 03/01/25 19:43 Completed Vital Signs Vital signs: Vital Signs Temperature 98.9 F 03/01/25 19:15 Pulse Rate 116 H 03/01/25 19:15 Respiratory Rate 18 03/01/25 19:15 Blood Pressure 147/98 H 03/01/25 19:15 Pulse Oximetry (%) 97 03/01/25 19:15 Oxygen Delivery Method Room Air 03/01/25 19:15 Psych MDM Narrative MDM Narrative:: 24-year-old female patient with significant history of schizophrenia, was brought in by law enforcement for voluntary hold. Patient apparently was seen here yesterday for worsening psychosis, and was cleared to discharge home. According to the law enforcement family called them because the patient has been having hallucinations and got scared and becoming psychotic. On my initial evaluation patient was noted to be verbalizing having scary auditory hallucination. Patient is denying any homicidal or suicidal ideation. Patient told me that she is taking her psych medication with good compliance. Patient eloped from the emergency room Patient data External records reviewed:: None Clinical information provided by:: patient and law enforcement Social determinants that could affect healthcare access:: mental health Patient has the following chronic illnesses:: Chronic schizophrenia How is presenting disease/condition affected by chronic disease/condition?: exacerbated by Evaluation data The following diagnostics were reviewed and interpreted by me:: lab results Lab and/or radiology exams considered but not ordered:: None Interpretation Summary: Elopement Medications / Prescriptions Medications or Prescriptions considered but not ordered:: None Medication administrations:: Elopement Consultations Consultation(s) initiated? (list below): No Diagnosis Psych Differential Diagnosis: acute psychosis, suicidal ideation, depression and drug-induced psychotic disorder Most likely diagnosis given after review of the tests above:: Psychosis Admission Indicated Admission indicated?: not indicated ([facility]opement) Admission Request Was there a request for admission?: No Disposition Plan Disposition Plan: other (specify) Discharge Plan Plan Patient Disposition: [facility]op[facility] Prescriptions/Referrals Prescriptions/Med Rec: No Action docusate sodium [Colace] 100 mg capsule 100 mg PO BID Qty: 40 0RF olanzapine 20 mg Tablet 25 mg PO QPM lorazepam [Ativan] 0.5 mg tablet 0.5 mg PO BID PRN (Reason: anxiety) Qty: 14 0RF fluoxetine [Prozac] 20 mg Capsule 20 mg PO QDAY lorazepam [Ativan] 0.5 mg tablet 0.5 mg PO BID PRN (Reason: anxiety) Qty: 10 0RF Referrals: No Primary/Family,Physician [Primary Care Provider] - In 1 week Problem List Clinical Impression: Acute psychosis Patient/Caregiver Discharge Instructions Print Language: Urdu
[2025-03-01 19:15] VITALS: BP 147/98; PULSE 116; RESP 18; TEMP 37.2; O2SAT 97; BMI 33.3
--- NOTE | 2025-03-01 19:50 | PC.NURSE ---
PT BROUGHT IN BY PD FOR VOLUNTARY HOLD UPON ASSESSMENT PATIENT DENIES ANY SI/HI STATES SHE JUST MISSES HER SISTER AND WANTS TO BE AWAY FROM HER PARENTS
[2025-03-01 19:58] LABS: Basophils # (Auto) 0.0 Thou/mm3 (0.0-0.2); Basophils % (Auto) 0 % (0-2.5); Eosinophils # (Auto) 0.0 Thou/mm3 (0.0-0.5); Eosinophils % (Auto) 0 % (0-10); Hematocrit 39.8 % (36.0-46.0); Hemoglobin 13.5 g/dL (12.0-16.0); Immature Granulocytes Auto 0.02 Thou/mm3 (0.00-0.00); Lymphocytes # (Auto) 2.2 Thou/mm3 (1.0-4.8); Lymphocytes % (Auto) 33 % (10-50); Mean Corpuscular HGB Conc 33.9 g/dl (31.0-37.0); Mean Corpuscular Hemoglobin 29.5 pg (25.0-35.0); Mean Corpuscular Volume 87 fL (80-100); Monocytes # (Auto) 0.5 Thou/mm3 (0.0-0.8); Monocytes % (Auto) 8 % (0-12); Neutrophils # (Auto) 3.9 Thou/mm3 (1.8-7.7); Neutrophils % (Auto) 59 % (37-80); Nucleated Red Blood Cell # 0.00 Thou/mm3 (0.00-0.00); Nucleated Red Blood Cell % 0 /100 WBC (0); Platelet Count 261 Thou/mm3 (140-440); RDW Standard Deviation 41.6 fL (36.4-46.3); Red Blood Count 4.57 Miln/mm3 (4.00-5.20); White Blood Count 6.7 Thou/mm3 (3.6-11.0)
--- NOTE | 2025-03-01 20:03 | PC.NURSE ---
2004 PT WOULD NOT STAY IN HER ROOM HAD TO TELL HER SEVERAL TIMES, AT THIS TIME PT RAN OUT OF THE ED FRONT LOBBY. MOM WAS HERE BUT PT DID NOT WANT MOM IN HER ROOM. MOM DID FOLLOW PT OUT THE ED LOBBY . PT WAS VOLUNTARY AND PER HELENA HIGHTOWER DENIED SI OR HI .
[2025-03-01 20:40] LABS: Anion Gap 12 (7-16); BUN/Creatinine Ratio 16 Ratio (12-20); Blood Urea Nitrogen 11 mg/dL (9-23); Calcium 9.9 mg/dL (8.3-10.6); Carbon Dioxide 25.2 mMol/L (20.0-31.0); Chloride 108 mMol/L (98-107); Creatinine (Component) 0.7 mg/dL (0.6-1.3); Estimated Creatinine Clearance 124.5 mL/min (>60); Glucose 98 mg/dL (74-106); Osmolality,Calculated 288 (275-295); Potassium 3.4 mMol/L (3.4-5.1); Sodium 145 mMol/L (136-145); eGFR > 60 See Note
== END 2025-03-01 20:07 | disposition left against medical advice (07) ==
PROVIDERS: Nurse Practitioner Family; Emergency Provider Emergency Medicine
DX: Z00.8 Encounter for other general examination (principal); F20.9 Schizophrenia, unspecified; Z53.29 Procedure and treatment not carried out because of patient's decision for other reasons
CPT/HCPCS: 36415; 80048; 85025; 96127; 99283